=== PATIENT | male | born 1990 | race American Indian/Alaskan Native ===

== ENCOUNTER 2019-02-17 11:19 | Emergency (ER) | payer MEDICAID ==
[~2019-02-17] VITALS: Ht 172.7 cm; Wt 80.0 kg
[~2019-02-17 11:19] MED LIST: CHLO25CA10 PO; COL0.6T PO; FAMO-115 CORPAK; NO HOME MEDS; ONDA8TAB9 PO; PANT-47 PO; PANT20TA2 PO; SUCR1TAB PO; ZOF4T PO
[2019-02-17 12:27] LABS: BASOPHILS % (AUTO) 0.8 % (0-1); EOSINOPHILS % (AUTO) 0.7 % (0-6); HEMATOCRIT 45.4 % (42.0-52.0); HEMOGLOBIN 15.7 g/dl (14.0-17.9); LYMPHOCYTES # (AUTO) 1.2 X10'3 (1.1-4.8); LYMPHOCYTES % (AUTO) 25.6 % (21-51); MEAN CORPUSCULAR HEMOGLOBIN 31.2 PG (27.0-31.0); MEAN CORPUSCULAR HGB CONC 34.6 g/dL (33.0-36.5); MEAN PLATELET VOLUME 7.2 FL (7.4-10.4); MONOCYTES # (AUTO) 0.4 X10'3 (0-0.9); MONOCYTES % (AUTO) 9.3 % (2-12); NEUTROPHILS # (AUTO) 3.1 X10'3 (1.8-7.7); NEUTROPHILS % (AUTO) 63.6 % (42-75); PLATELET COUNT 186 X10'3 (140-440); RED BLOOD COUNT 5.04 X10'6 (4.70-6.10); RED CELL DISTRIBUTION WIDTH 12.6 % (11.5-14.5); WHITE BLOOD COUNT 4.8 X10'3 (4.5-11.0)
[2019-02-17 12:39] LABS: ALANINE AMINOTRANSFERASE 42 U/L (12-78); ALBUMIN 4.1 G/DL (3.4-5.0); ALBUMIN/GLOBULIN RATIO 1.3 (1.1-1.5); ALKALINE PHOSPHATASE 100 IU/L (46-116); ANION GAP 8 (8-16); ASPARTATE AMINO TRANSFERASE 25 U/L (10-37); BILIRUBIN,TOTAL 0.5 MG/DL (0.1-1.0); BLOOD UREA NITROGEN 12 MG/DL (7-18); BUN/CREATININE RATIO 13.5 (5.4-32.0); CALCIUM 8.7 MG/DL (8.5-10.1); CHLORIDE 107 MMOL/L (99-107); CREATININE 0.89 MG/DL (0.60-1.10); GLUCOSE 110 MG/DL (70-104); POTASSIUM 3.9 MMOL/L (3.5-5.1); SODIUM 142 MMOL/L (135-145); TOTAL CARBON DIOXIDE 27.5 MMOL/L (24-32); TOTAL PROTEIN 7.3 G/DL (6.4-8.2); eGFR > 90 ML/MIN
[2019-02-17 12:44] LABS: CLARITY,URINE CLEAR (Clear); COLOR,URINE YELLOW (Yellow); GLUCOSE, URINE NEGATIVE (Neg); KETONES,URINE NEGATIVE (Neg); LEUKOCYTE ESTERASE ,URINE NEGATIVE (Neg); NITRITES, URINE NEGATIVE (Neg); OCCULT BLOOD,URINE NEGATIVE (Neg); PROTEIN,URINE NEGATIVE (Neg)
[2019-02-17 12:48] LABS: UA COLLECTION TYPE CLN CATCH MIDSTREAM
[2019-02-17] MEDS ORDERED: SUCR1TAB34 PO (12:50)
[2019-02-17] MEDS ORDERED: PANT-47 PO (12:50)
[2019-02-17] MEDS ORDERED: sucralfate 1gm/10ml UD suspension PO ONE (12:50)
[2019-02-17] MEDS ORDERED: pantoprazole 40mg Tablet.DR PO ONE (12:50)
[2019-02-17 13:06] VITALS: BP 120/78
== END 2019-02-17 13:08 | disposition home or self-care (01) ==
LOC: ER 11:20
DX: K62.5 Hemorrhage of anus and rectum (principal); R10.13 Epigastric pain; K21.9 Gastro-esophageal reflux disease without esophagitis; F15.90 Other stimulant use, unspecified, uncomplicated; Z87.11 Personal history of peptic ulcer disease; Z79.899 Other long term (current) drug therapy
CPT/HCPCS: 36415; 80053; 81003; 85025; 85610; 99283

== ENCOUNTER 2019-09-12 11:58 | Emergency (ER) | payer MEDICAID ==
[~2019-09-12] VITALS: Ht 167.6 cm; Wt 65.0 kg
[~2019-09-12 11:58] MED LIST changes: +SUCR1TAB34 PO
[2019-09-12 12:14] VITALS: BP 134/85
[2019-09-12] MEDS ORDERED: ketorolac trometh. 30mg/ml inj. IM ONE (13:35)
== END 2019-09-12 14:37 | disposition home or self-care (01) ==
LOC: ER 11:59
DX: S83.92XA Sprain of unspecified site of left knee, initial encounter (principal); S70.12XA Contusion of left thigh, initial encounter; K21.9 Gastro-esophageal reflux disease without esophagitis; F15.90 Other stimulant use, unspecified, uncomplicated; Z79.899 Other long term (current) drug therapy; X50.1XXA Overexertion from prolonged static or awkward postures, initial encounter; W18.39XA Other fall on same level, initial encounter; Y93.89 Activity, other specified; Y92.89 Other specified places as the place of occurrence of the external cause; Y99.8 Other external cause status
CPT/HCPCS: 73502; 73552; 96372; 99284; J1885

== ENCOUNTER 2021-07-27 14:56 | Emergency (ER) | payer MEDICAID ==
[~2021-07-27] VITALS: Ht 170.2 cm; Wt 63.6 kg
[2021-07-27 15:09] VITALS: BP 117/69
[2021-07-27 16:01] LABS: BASOPHILS % (AUTO) 0.7 % (0-1); EOSINOPHILS % (AUTO) 0.7 % (0-6); HEMATOCRIT 46.7 % (42.0-52.0); HEMOGLOBIN 15.8 g/dl (14.0-17.9); LYMPHOCYTES # (AUTO) 1.4 X10'3 (1.1-4.8); LYMPHOCYTES % (AUTO) 27.3 % (21-51); MEAN CORPUSCULAR HEMOGLOBIN 30.3 PG (27.0-31.0); MEAN CORPUSCULAR HGB CONC 33.8 g/dL (33.0-36.5); MEAN CORPUSCULAR VOLUME 89.6 FL (78-98); MEAN PLATELET VOLUME 7.5 FL (7.4-10.4); MONOCYTES # (AUTO) 0.4 X10'3 (0-0.9); MONOCYTES % (AUTO) 8.1 % (2-12); NEUTROPHILS # (AUTO) 3.3 X10'3 (1.8-7.7); NEUTROPHILS % (AUTO) 63.2 % (42-75); PLATELET COUNT 187 X10'3 (140-440); RED BLOOD COUNT 5.21 X10'6 (4.70-6.10); RED CELL DISTRIBUTION WIDTH 12.4 % (11.5-14.5); WHITE BLOOD COUNT 5.2 X10'3 (4.5-11.0)
[2021-07-27 16:37] LABS: ALANINE AMINOTRANSFERASE 16 U/L (12-78); ALBUMIN 4.4 G/DL (3.4-5.0); ALBUMIN/GLOBULIN RATIO 1.6 (1.1-1.5); ALKALINE PHOSPHATASE 60 IU/L (46-116); ANION GAP 12 (8-16); ASPARTATE AMINO TRANSFERASE 14 U/L (10-37); BILIRUBIN,TOTAL 0.6 MG/DL (0.1-1.0); BLOOD UREA NITROGEN 9 MG/DL (7-18); CHLORIDE 105 MMOL/L (99-107); GLUCOSE 88 MG/DL (70-104); LIPASE < 50 U/L (73-393); MAGNESIUM 1.9 MG/DL (1.5-2.4); POTASSIUM 4.3 MMOL/L (3.5-5.1); SODIUM 143 MMOL/L (135-145); TOTAL CARBON DIOXIDE 26.2 MMOL/L (24-32); TOTAL PROTEIN 7.2 G/DL (6.4-8.2); eGFR > 90 ML/MIN
[2021-07-27] MEDS ORDERED: FAMO20TA8 PO (17:00)
[2021-07-27 17:28] LABS: CLARITY,URINE CLEAR (Clear); COLOR,URINE YELLOW (Yellow); GLUCOSE, URINE NEGATIVE (Neg); KETONES,URINE NEGATIVE (Neg); LEUKOCYTE ESTERASE ,URINE TRACE (Neg); NITRITES, URINE NEGATIVE (Neg); OCCULT BLOOD,URINE TRACE-INTACT (Neg); PROTEIN,URINE NEGATIVE (Neg); UROBILINOGEN,URINE 0.2 E.U/dL (0.2-1.0)
[2021-07-27 17:32] LABS: UA COLLECTION TYPE CLN CATCH MIDSTREAM
[2021-07-27 17:40] LABS: BACTERIA,URINE FEW /HPF (Neg); MUCUS STRANDS FEW /LPF (Neg); RBC,URINE 0-2 /HPF (0-2); SQUAMOUS EPITHELIAL CELL,UR FEW /LPF (FEW)
[2021-07-27 17:41] LABS: WBC,URINE 0-4 /HPF (0-4)
== END 2021-07-27 17:13 | disposition home or self-care (01) ==
LOC: ER 14:57
DX: R10.31 Right lower quadrant pain (principal); K92.1 Melena; R19.7 Diarrhea, unspecified; K21.9 Gastro-esophageal reflux disease without esophagitis; F15.90 Other stimulant use, unspecified, uncomplicated; Z87.11 Personal history of peptic ulcer disease; Z72.89 Other problems related to lifestyle; Z79.899 Other long term (current) drug therapy
CPT/HCPCS: 36415; 74176; 80053; 81001; 82140; 83690; 83735; 85025; 87088; 99284

== ENCOUNTER 2021-08-07 13:16 | Emergency (ER) | payer MEDICAID ==
[~2021-08-07] VITALS: Ht 167.6 cm; Wt 53.6 kg
[~2021-08-07 13:16] MED LIST changes: +FAMO20TA8 PO
[2021-08-07 13:25] VITALS: BP 113/72
[2021-08-07 14:02] LABS: CLARITY,URINE CLEAR (Clear); COLOR,URINE YELLOW (Yellow); GLUCOSE, URINE NEGATIVE (Neg); KETONES,URINE NEGATIVE (Neg); LEUKOCYTE ESTERASE ,URINE NEGATIVE (Neg); NITRITES, URINE NEGATIVE (Neg); OCCULT BLOOD,URINE NEGATIVE (Neg); PH,URINE 6.5 (4.8-8.0); PROTEIN,URINE NEGATIVE (Neg); UROBILINOGEN,URINE 0.2 E.U/dL (0.2-1.0)
[2021-08-07 14:04] LABS: UA COLLECTION TYPE VOIDED
[2021-08-07 14:12] LABS: BASOPHILS % (AUTO) 0.5 % (0-1); EOSINOPHILS # (AUTO) 0.1 X10'3 (0-0.9); EOSINOPHILS % (AUTO) 1.4 % (0-6); HEMATOCRIT 46.8 % (42.0-52.0); HEMOGLOBIN 16.1 g/dl (14.0-17.9); LYMPHOCYTES # (AUTO) 1.6 X10'3 (1.1-4.8); LYMPHOCYTES % (AUTO) 21.3 % (21-51); MEAN CORPUSCULAR HGB CONC 34.5 g/dL (33.0-36.5); MEAN PLATELET VOLUME 7.4 FL (7.4-10.4); MONOCYTES # (AUTO) 0.6 X10'3 (0-0.9); MONOCYTES % (AUTO) 7.4 % (2-12); NEUTROPHILS # (AUTO) 5.1 X10'3 (1.8-7.7); NEUTROPHILS % (AUTO) 69.4 % (42-75); PLATELET COUNT 190 X10'3 (140-440); RED CELL DISTRIBUTION WIDTH 12.7 % (11.5-14.5); WHITE BLOOD COUNT 7.4 X10'3 (4.5-11.0)
[2021-08-07 14:18] LABS: ALANINE AMINOTRANSFERASE 19 U/L (12-78); ALBUMIN 4.3 G/DL (3.4-5.0); ALBUMIN/GLOBULIN RATIO 1.6 (1.1-1.5); ALKALINE PHOSPHATASE 66 IU/L (46-116); ANION GAP 8 (8-16); ASPARTATE AMINO TRANSFERASE 16 U/L (10-37); BILIRUBIN,TOTAL 0.5 MG/DL (0.1-1.0); BLOOD UREA NITROGEN 9 MG/DL (7-18); BUN/CREATININE RATIO 10.7 (5.4-32.0); CHLORIDE 107 MMOL/L (99-107); CREATININE 0.84 MG/DL (0.60-1.10); GLUCOSE 87 MG/DL (70-104); LIPASE 63 U/L (73-393); POTASSIUM 4.2 MMOL/L (3.5-5.1); SODIUM 143 MMOL/L (135-145); TOTAL CARBON DIOXIDE 27.8 MMOL/L (24-32); eGFR > 90 ML/MIN
[2021-08-07] MEDS ORDERED: OMEP20CA15 PO (14:56)
[2021-08-07 16:29] LABS: OCCULT BLOOD STOOL POSITIVE (Neg)
== END 2021-08-07 15:24 | disposition home or self-care (01) ==
LOC: ER 13:17
DX: K92.2 Gastrointestinal hemorrhage, unspecified (principal); R10.32 Left lower quadrant pain; K21.9 Gastro-esophageal reflux disease without esophagitis; Z79.899 Other long term (current) drug therapy
CPT/HCPCS: 36415; 80053; 81003; 82272; 83690; 85025; 99283

== ENCOUNTER 2022-01-13 20:00 | Emergency (ER) | payer MEDICAID ==
[~2022-01-13] VITALS: Ht 167.6 cm; Wt 55.9 kg
[~2022-01-13 20:00] MED LIST changes: +OMEP20CA15 PO
[2022-01-13 20:52] LABS: CLARITY,URINE SLIGHTLY CLOUDY (Clear); COLOR,URINE YELLOW (Yellow); GLUCOSE, URINE NEGATIVE (Neg); KETONES,URINE TRACE mg/dl (Neg); LEUKOCYTE ESTERASE ,URINE NEGATIVE (Neg); NITRITES, URINE NEGATIVE (Neg); OCCULT BLOOD,URINE NEGATIVE (Neg); PH,URINE 8.5 (4.8-8.0); PROTEIN,URINE TRACE mg/dl (Neg); UROBILINOGEN,URINE 0.2 E.U/dL (0.2-1.0)
[2022-01-13 20:56] LABS: UA COLLECTION TYPE VOIDED
[2022-01-13 20:58] LABS: BASOPHILS % (AUTO) 0.5 % (0-1); EOSINOPHILS # (AUTO) 0.1 X10'3 (0-0.9); EOSINOPHILS % (AUTO) 1.1 % (0-6); HEMATOCRIT 41.5 % (42.0-52.0); HEMOGLOBIN 14.2 g/dl (14.0-17.9); LYMPHOCYTES # (AUTO) 1.7 X10'3 (1.1-4.8); LYMPHOCYTES % (AUTO) 24.9 % (21-51); MEAN CORPUSCULAR HEMOGLOBIN 30.9 PG (27.0-31.0); MEAN CORPUSCULAR HGB CONC 34.1 g/dL (33.0-36.5); MEAN CORPUSCULAR VOLUME 90.6 FL (78-98); MONOCYTES # (AUTO) 0.5 X10'3 (0-0.9); MONOCYTES % (AUTO) 7.1 % (2-12); NEUTROPHILS # (AUTO) 4.6 X10'3 (1.8-7.7); NEUTROPHILS % (AUTO) 66.4 % (42-75); PLATELET COUNT 199 X10'3 (140-440); RED BLOOD COUNT 4.58 X10'6 (4.70-6.10); RED CELL DISTRIBUTION WIDTH 12.7 % (11.5-14.5); WHITE BLOOD COUNT 6.9 X10'3 (4.5-11.0)
[2022-01-13 21:01] LABS: BACTERIA,URINE NONE SEEN /HPF (Neg); RBC,URINE NONE SEEN /HPF (0-2); SQUAMOUS EPITHELIAL CELL,UR FEW /LPF (FEW); WBC,URINE NONE SEEN /HPF (0-4)
[2022-01-13 21:12] LABS: ALANINE AMINOTRANSFERASE 28 U/L (12-78); ALBUMIN 4.1 G/DL (3.4-5.0); ALBUMIN/GLOBULIN RATIO 1.5 (1.1-1.5); ALKALINE PHOSPHATASE 70 IU/L (46-116); ANION GAP 7 (8-16); ASPARTATE AMINO TRANSFERASE 21 U/L (10-37); BILIRUBIN,TOTAL 0.4 MG/DL (0.1-1.0); BLOOD UREA NITROGEN 11 MG/DL (7-18); CALCIUM 8.2 MG/DL (8.5-10.1); CHLORIDE 104 MMOL/L (99-107); CREATININE 1.22 MG/DL (0.60-1.10); GLUCOSE 91 MG/DL (70-104); LIPASE 78 U/L (73-393); POTASSIUM 4.1 MMOL/L (3.5-5.1); SODIUM 142 MMOL/L (135-145); TOTAL CARBON DIOXIDE 30.8 MMOL/L (24-32); TOTAL PROTEIN 6.9 G/DL (6.4-8.2); eGFR 69 ML/MIN
[2022-01-13] MEDS ORDERED: iohexol 350MG/ML 100ml bottle IV ONE (21:52)
[2022-01-13] MEDS ORDERED: ketorolac trometh. 30mg/ml inj. IV ONE (22:00)
[2022-01-13] MEDS ORDERED: ondansetron/PF 4mg/2ml inj IV ONE (22:00)
[2022-01-13] MEDS ORDERED: morphine 4 MG/ML inj SYRINge IV PRN (22:00)
[2022-01-13] MEDS ORDERED: normal saline 1000ML IV soln IVB ONE (22:00)
--- NOTE | 2022-01-13 22:14 | NUR ---
TO CT VIA WC
[2022-01-13] MEDS ORDERED: HYDR-3965 PO (22:54)
[2022-01-13] MEDS ORDERED: HYDROcodone/acetaminophen 10/325mg tab PO ONE (22:55)
[2022-01-13 23:31] VITALS: BP 129/89
== END 2022-01-13 23:32 | disposition home or self-care (01) ==
LOC: ER 20:00
DX: T81.89XA Other complications of procedures, not elsewhere classified, initial encounter (principal); F15.10 Other stimulant abuse, uncomplicated; K21.9 Gastro-esophageal reflux disease without esophagitis; Z79.899 Other long term (current) drug therapy
CPT/HCPCS: 36415; 74177; 80053; 81001; 83690; 85025; 96361; 96374; 96375; 99285; J1885; J2270; J2405; J3490; J7030; Q9967

== ENCOUNTER 2022-04-13 15:04 | Emergency (ER) | payer MEDICAID ==
[~2022-04-13] VITALS: Ht 162.6 cm; Wt 153.9 kg
[2022-04-13 15:17] VITALS: BP 132/75
[2022-04-13 16:38] LABS: BASOPHILS # (AUTO) 0.1 X10'3 (0-0.2); BASOPHILS % (AUTO) 0.8 % (0-1); EOSINOPHILS # (AUTO) 0.2 X10'3 (0-0.9); EOSINOPHILS % (AUTO) 2.1 % (0-6); HEMATOCRIT 45.3 % (42.0-52.0); HEMOGLOBIN 15.5 g/dl (14.0-17.9); LYMPHOCYTES # (AUTO) 2.3 X10'3 (1.1-4.8); LYMPHOCYTES % (AUTO) 28.6 % (21-51); MEAN CORPUSCULAR HEMOGLOBIN 31.4 PG (27.0-31.0); MEAN CORPUSCULAR HGB CONC 34.2 g/dL (33.0-36.5); MEAN CORPUSCULAR VOLUME 91.7 FL (78-98); MEAN PLATELET VOLUME 7.5 FL (7.4-10.4); MONOCYTES # (AUTO) 0.7 X10'3 (0-0.9); NEUTROPHILS # (AUTO) 4.8 X10'3 (1.8-7.7); NEUTROPHILS % (AUTO) 59.5 % (42-75); PLATELET COUNT 194 X10'3 (140-440); RED BLOOD COUNT 4.94 X10'6 (4.70-6.10); RED CELL DISTRIBUTION WIDTH 12.4 % (11.5-14.5)
[2022-04-13 16:56] LABS: ALANINE AMINOTRANSFERASE 12 U/L (12-78); ALBUMIN 3.9 G/DL (3.4-5.0); ALBUMIN/GLOBULIN RATIO 1.4 (1.1-1.5); ALKALINE PHOSPHATASE 67 IU/L (46-116); ANION GAP 7 (8-16); ASPARTATE AMINO TRANSFERASE 22 U/L (10-37); BILIRUBIN,TOTAL 0.3 MG/DL (0.1-1.0); BLOOD UREA NITROGEN 11 MG/DL (7-18); BUN/CREATININE RATIO 13.3 (5.4-32.0); CALCIUM 8.6 MG/DL (8.5-10.1); CHLORIDE 106 MMOL/L (99-107); CREATININE 0.83 MG/DL (0.60-1.10); GLUCOSE 92 MG/DL (70-104); LIPASE 77 U/L (73-393); POTASSIUM 3.6 MMOL/L (3.5-5.1); SODIUM 140 MMOL/L (135-145); TOTAL CARBON DIOXIDE 27.5 MMOL/L (24-32); TOTAL PROTEIN 6.7 G/DL (6.4-8.2); eGFR > 90 ML/MIN
== END 2022-04-13 18:53 | disposition home or self-care (01) ==
LOC: ER 15:04
DX: M62.08 Separation of muscle (nontraumatic), other site (principal); R10.12 Left upper quadrant pain; K21.9 Gastro-esophageal reflux disease without esophagitis; F15.90 Other stimulant use, unspecified, uncomplicated; Z87.11 Personal history of peptic ulcer disease; Z72.89 Other problems related to lifestyle; Z79.899 Other long term (current) drug therapy
CPT/HCPCS: 36415; 76700; 80053; 83690; 85025; 99284

== ENCOUNTER 2022-08-04 09:29 | Emergency (ER) | payer MEDICAID ==
[~2022-08-04] VITALS: Ht 160 cm; Wt 55.0 kg
[2022-08-04 09:31] VITALS: BP 112/75
[2022-08-04] MEDS ORDERED: HYDROcodone/acetaminophen 10/325mg tab PO ONE (10:35)
[2022-08-04] MEDS ORDERED: TRAM50TA2 PO (10:58)
== END 2022-08-04 11:46 | disposition home or self-care (01) ==
LOC: ER 09:29
DX: M25.531 Pain in right wrist (principal); V00.131A Fall from skateboard, initial encounter; Y93.89 Activity, other specified; Y92.89 Other specified places as the place of occurrence of the external cause; Y99.8 Other external cause status
CPT/HCPCS: 29125; 73110; 99284

== ENCOUNTER 2022-10-24 11:54 | Emergency (ER) | payer MEDICAID ==
[~2022-10-24] VITALS: Ht 160 cm; Wt 53.2 kg
[~2022-10-24 11:54] MED LIST changes: +TRAM50TA2 PO
[2022-10-24] MEDS ORDERED: oxyCODONE/APAP 10/325mg tablet PO ONE (14:15)
[2022-10-24 14:49] VITALS: BP 139/74
[2022-10-24] MEDS ORDERED: METH4TAB3 PO (18:45)
== END 2022-10-24 14:51 | disposition home or self-care (01) ==
LOC: ER 11:55
DX: M25.531 Pain in right wrist (principal); K21.9 Gastro-esophageal reflux disease without esophagitis; F15.20 Other stimulant dependence, uncomplicated; V00.131A Fall from skateboard, initial encounter; Y93.89 Activity, other specified; Y92.89 Other specified places as the place of occurrence of the external cause; Y99.8 Other external cause status
CPT/HCPCS: 99283

== ENCOUNTER 2023-01-19 16:42 | Emergency (ER) | payer MEDICAID ==
[~2023-01-19] VITALS: Ht 167.6 cm; Wt 80.0 kg
[~2023-01-19 16:42] MED LIST changes: +CYCL-1 PO; +METH4TAB3 PO
[2023-01-19 19:22] LABS: BASOPHILS % (AUTO) 0.6 % (0-1); EOSINOPHILS # (AUTO) 0.2 X10'3 (0-0.9); EOSINOPHILS % (AUTO) 3.5 % (0-6); HEMATOCRIT 46.4 % (42.0-52.0); HEMOGLOBIN 15.8 g/dl (14.0-17.9); LYMPHOCYTES # (AUTO) 1.7 X10'3 (1.1-4.8); LYMPHOCYTES % (AUTO) 30.4 % (21-51); MEAN CORPUSCULAR HEMOGLOBIN 31.7 PG (27.0-31.0); MEAN CORPUSCULAR HGB CONC 34.1 g/dL (33.0-36.5); MEAN CORPUSCULAR VOLUME 92.9 FL (78-98); MEAN PLATELET VOLUME 7.5 FL (7.4-10.4); MONOCYTES # (AUTO) 0.6 X10'3 (0-0.9); NEUTROPHILS % (AUTO) 54.5 % (42-75); PLATELET COUNT 179 X10'3 (140-440); RED BLOOD COUNT 4.99 X10'6 (4.70-6.10); RED CELL DISTRIBUTION WIDTH 12.3 % (11.5-14.5); WHITE BLOOD COUNT 5.5 X10'3 (4.5-11.0)
[2023-01-19 19:31] LABS: ALANINE AMINOTRANSFERASE 28 U/L (12-78); ALBUMIN/GLOBULIN RATIO 1.4 (1.1-1.5); ALKALINE PHOSPHATASE 86 IU/L (46-116); AMYLASE 61 U/L (25-115); ANION GAP 8 (8-16); ASPARTATE AMINO TRANSFERASE 26 U/L (10-37); BILIRUBIN,TOTAL 0.4 MG/DL (0.1-1.0); BLOOD UREA NITROGEN 14 MG/DL (7-18); BUN/CREATININE RATIO 13.6 (10.0-20.0); CHLORIDE 101 MMOL/L (99-107); CREATININE 1.03 MG/DL (0.60-1.10); GLUCOSE 67 MG/DL (70-104); LIPASE 57 U/L (73-393); POTASSIUM 3.8 MMOL/L (3.5-5.1); SODIUM 141 MMOL/L (135-145); TOTAL PROTEIN 6.9 G/DL (6.4-8.2); eCRCL 92 ML/MIN; eGFR 83 ML/MIN
[2023-01-19 19:39] LABS: CALCIUM 8.8 MG/DL (8.5-10.1)
[2023-01-19 22:46] VITALS: BP 119/76; PULSE 67; RESP 16; TEMP 98.3; O2SAT 100
[2023-01-19] MEDS ORDERED: iohexol 300mg/ml 100ml inj. ONE (23:47)
[2023-01-20 02:26] LABS: BILIRUBIN,URINE NEGATIVE (Neg); CLARITY,URINE CLEAR (Clear); COLOR,URINE STRAW (Yellow); GLUCOSE, URINE NEGATIVE (Neg); KETONES,URINE NEGATIVE (Neg); LEUKOCYTE ESTERASE ,URINE NEGATIVE (Neg); NITRITES, URINE NEGATIVE (Neg); OCCULT BLOOD,URINE NEGATIVE (Neg); PROTEIN,URINE NEGATIVE (Neg); UROBILINOGEN,URINE 0.2 E.U/dL (0.2-1.0)
[2023-01-20 02:28] LABS: UA COLLECTION TYPE VOIDED
[2023-01-20] MEDS ORDERED: PANT-47 PO (02:45)
[2023-01-20] MEDS ORDERED: METO-292 PO (02:45)
[2023-01-20] MEDS ORDERED: pantoprazole 40mg Tablet.DR PO ONE (02:45)
[2023-01-20] MEDS ORDERED: DIPH25CA83 PO (02:45)
[2023-01-20] MEDS ORDERED: diphenhydrAMINE 25mg capsule PO ONE (02:45)
[2023-01-20] MEDS ORDERED: metoclopramide 10mg tablet PO ONE (02:45)
[2023-01-20] MEDS ORDERED: pantoprazole 40mg Tablet.DR PO SCH (07:30)
== END 2023-01-20 03:00 | disposition home or self-care (01) ==
LOC: ER 16:42
DX: K29.60 Other gastritis without bleeding (principal); R10.9 Unspecified abdominal pain; K21.9 Gastro-esophageal reflux disease without esophagitis; F15.90 Other stimulant use, unspecified, uncomplicated; Z79.899 Other long term (current) drug therapy
CPT/HCPCS: 36415; 74177; 80053; 81003; 82150; 83690; 85025; 99285; Q0163; Q9967

== ENCOUNTER 2023-05-04 18:00 | Emergency (ER) | payer MEDICAID ==
[~2023-05-04] VITALS: Ht 162.6 cm; Wt 61.7 kg
[~2023-05-04 18:00] MED LIST changes: +DIPH25CA83 PO; +METO-292 PO
[2023-05-04 18:05] VITALS: BP 131/74; PULSE 64; RESP 18; TEMP 97.7; O2SAT 99
[2023-05-04] MEDS ORDERED: LIPA1CAP21 PO (18:58)
== END 2023-05-04 19:16 | disposition home or self-care (01) ==
LOC: ER 18:00
DX: K85.90 Acute pancreatitis without necrosis or infection, unspecified (principal); Z76.0 Encounter for issue of repeat prescription; K21.9 Gastro-esophageal reflux disease without esophagitis; F15.90 Other stimulant use, unspecified, uncomplicated; Z72.89 Other problems related to lifestyle; Z79.899 Other long term (current) drug therapy
CPT/HCPCS: 99281

== ENCOUNTER 2023-08-05 09:25 | Emergency (ER) | payer MEDICAID ==
[~2023-08-05] VITALS: Ht 165.1 cm; Wt 57.5 kg
[~2023-08-05 09:25] MED LIST changes: +LIPA1CAP21 PO
[2023-08-05 10:03] VITALS: BP 125/73; PULSE 73; RESP 14; TEMP 98; O2SAT 100
[2023-08-05 11:15] LABS: BILIRUBIN,URINE NEGATIVE (Neg); CLARITY,URINE CLEAR (Clear); COLOR,URINE YELLOW (Yellow); GLUCOSE, URINE NEGATIVE (Neg); KETONES,URINE NEGATIVE (Neg); LEUKOCYTE ESTERASE ,URINE NEGATIVE (Neg); NITRITES, URINE NEGATIVE (Neg); OCCULT BLOOD,URINE NEGATIVE (Neg); PH,URINE 7.5 (4.8-8.0); PROTEIN,URINE NEGATIVE (Neg); UROBILINOGEN,URINE 0.2 E.U/dL (0.2-1.0)
[2023-08-05 11:17] LABS: UA COLLECTION TYPE CLN CATCH MIDSTREAM
== END 2023-08-05 11:15 | disposition left against medical advice (07) ==
LOC: ER 09:25
DX: G40.909 Epilepsy, unspecified, not intractable, without status epilepticus (principal); Z53.21 Procedure and treatment not carried out due to patient leaving prior to being seen by health care provider
CPT/HCPCS: 81003; 99281

== ENCOUNTER 2024-06-14 14:42 | Emergency (ER) | payer MEDICAID | END 2024-06-14 16:23 | disposition left against medical advice (07) | LOC: ER 14:43 | DX: R10.9 Unspecified abdominal pain (principal); Z53.21 Procedure and treatment not carried out due to patient leaving prior to being seen by health care provider ==

== ENCOUNTER 2024-06-16 10:51 | Emergency (ER) | payer MEDICAID ==
[~2024-06-16] VITALS: Ht 167.6 cm; Wt 50.5 kg
[2024-06-16 11:06] VITALS: BP 126/80; PULSE 73; RESP 18; TEMP 97.6; O2SAT 98
[2024-06-16 12:28] LABS: BILIRUBIN,URINE NEGATIVE (Neg); CLARITY,URINE CLOUDY (Clear); COLOR,URINE YELLOW (Yellow); GLUCOSE, URINE NEGATIVE (Neg); KETONES,URINE NEGATIVE (Neg); LEUKOCYTE ESTERASE ,URINE NEGATIVE (Neg); NITRITES, URINE NEGATIVE (Neg); OCCULT BLOOD,URINE NEGATIVE (Neg); PH,URINE 8.5 (4.8-8.0); PROTEIN,URINE NEGATIVE (Neg); UROBILINOGEN,URINE 0.2 E.U/dL (0.2-1.0)
[2024-06-16 12:32] LABS: UA COLLECTION TYPE NON-SPECIFIED
[2024-06-16 12:34] LABS: BASOPHILS % (AUTO) 0.5 % (0-1); EOSINOPHILS % (AUTO) 0.4 % (0-6); HEMATOCRIT 44.8 % (42.0-52.0); HEMOGLOBIN 15.6 g/dl (14.0-17.9); LYMPHOCYTES # (AUTO) 1.2 X10'3 (1.1-4.8); LYMPHOCYTES % (AUTO) 17.5 % (21-51); MEAN CORPUSCULAR HEMOGLOBIN 32.4 PG (27.0-31.0); MEAN CORPUSCULAR HGB CONC 34.7 g/dL (33.0-36.5); MEAN CORPUSCULAR VOLUME 93.3 FL (78-98); MEAN PLATELET VOLUME 7.7 FL (7.4-10.4); MONOCYTES # (AUTO) 0.6 X10'3 (0-0.9); MONOCYTES % (AUTO) 9.5 % (2-12); NEUTROPHILS # (AUTO) 4.9 X10'3 (1.8-7.7); NEUTROPHILS % (AUTO) 72.1 % (42-75); PLATELET COUNT 202 X10'3 (140-440); RED CELL DISTRIBUTION WIDTH 12.4 % (11.5-14.5); WHITE BLOOD COUNT 6.8 X10'3 (4.5-11.0)
[2024-06-16 12:35] LABS: AMORPHOUS PHOSPHATES 3+; BACTERIA,URINE NONE SEEN /HPF (Neg); MUCUS STRANDS NONE SEEN /LPF (Neg); RBC,URINE NONE SEEN /HPF (0-2); SQUAMOUS EPITHELIAL CELL,UR NONE SEEN /LPF (FEW); WBC,URINE 0-4 /HPF (0-4)
[2024-06-16] MEDS: OLANZapine 2.5MG tablet PO STA (12:39)
[2024-06-16 13:09] LABS: URINE AMPHETAMINE SCREEN NEGATIVE (Neg); URINE BARBITUATE SCREEN NEGATIVE (Neg); URINE BENZODIAZEPINES SCREEN NEGATIVE (Neg); URINE CANNABINOID SCREEN POSITIVE (Neg); URINE COCAINE SCREEN NEGATIVE (Neg); URINE METHADONE SCREEN NEGATIVE (Neg); URINE OPIATE SCREEN NEGATIVE (Neg); URINE PHENCYCLIDINE SCREEN NEGATIVE (Neg)
[2024-06-16 14:25] LABS: ALBUMIN 4.1 G/DL (3.4-5.0); ANION GAP 9 (8-16); BLOOD UREA NITROGEN 11 MG/DL (7-18); BUN/CREATININE RATIO 16.7 (10.0-20.0); CALCIUM 8.8 MG/DL (8.5-10.1); CHLORIDE 101 MMOL/L (99-107); CREATININE 0.66 MG/DL (0.60-1.10); ETHANOL < 10 MG/DL (<10); GLUCOSE 102 MG/DL (70-104); POTASSIUM 3.7 MMOL/L (3.5-5.1); SODIUM 139 MMOL/L (135-145); eCRCL 112 ML/MIN; eGFR > 90 ML/MIN
[2024-06-16 14:37] LABS: THYROID STIMULATING HORMONE 1.11 ulU/ml (0.34-4.50)
[2024-06-16] MEDS: LIPASE/PROTEASE/AMYLASE 10,500 units CAPSULE.DR PO ONE (18:25)
[2024-06-16] MEDS: LORazepam 1 MG tablet PO STA (19:42)
[2024-06-17] MEDS ORDERED: LIPASE/PROTEASE/AMYLASE 10,500 units CAPSULE.DR PO SCH (07:30)
== END 2024-06-16 20:01 | disposition still patient (30) ==
LOC: ER 10:52
DX: R45.851 Suicidal ideations (principal); F25.9 Schizoaffective disorder, unspecified; K21.9 Gastro-esophageal reflux disease without esophagitis; F15.90 Other stimulant use, unspecified, uncomplicated; Z20.822 Contact with and (suspected) exposure to COVID-19; Z79.899 Other long term (current) drug therapy
CPT/HCPCS: 36415; 80048; 80305; 80320; 81001; 84443; 85025; 87811; 99285

== ENCOUNTER 2024-10-11 11:45 | Emergency (ER) | payer MEDICAID ==
[~2024-10-11] VITALS: Ht 165.1 cm; Wt 63.0 kg
[2024-10-11 11:54] VITALS: BP 130/79; PULSE 97; RESP 16; TEMP 98.3; O2SAT 98
[2024-10-11] MEDS ORDERED: LIPA1CAP21 PO (13:28)
--- NOTE | 2024-10-11 13:29 | Physician Documentation ---
HPI ~ General Chief Complaint: Medication Refill Stated Complaint: MED REQUEST Time Seen by MD: 12:05 Primary Medical Doctor: CESAR TEMPLE Source: patient Mode of Arrival: POV Exam Limitations: no limitations History of Present Illness HPI Comments 34-year-old male with pancreatic insufficiency here due to needing a refill of his ZenPep. He last took his then pep yesterday stating that he ran out of it because it is due to be refilled but the pharmacy shipment did not come in. He denies any symptoms or concerns other than needing a prescription for this medication which he has been on for years. Medication Reconciliation Allergies: Coded Allergies: No Known Allergies (Unverified , 10/11/24) Scheduled Chlordiazepoxide Hcl (Librium), 25 MG PO DIRECTED Chlordiazepoxide Hcl (Librium), 25 MG PO DIRECTED Colchicine (Colcrys), 0.6 MG PO BID Cyclobenzaprine* (Cyclobenzaprine*), 1 TAB PO HS Famotidine (PEPCID tablet), 20 MG CORPAK BID Famotidine (Famotidine), 1 TABLET PO BID Lipase/Protease/Amylase (Zenpep Dr 40,000 Units Capsule), 6 CAPSULE PO Q4H Lipase/Protease/Amylase (Zenpep Dr 40,000 Units Capsule), 1 CAP PO 6xper day Methylprednisolone (Medrol), 1 DOSPAK PO UD Omeprazole (Omeprazole), 2 CAP PO BID Ondansetron ODT* (Zofran ODT*), 4 MG PO Q6H Pantoprazole Sodium (PROTONIX tablet), 1 TABLET PO DAILY Pantoprazole Sodium (PROTONIX tablet), 1 TAB PO DAILY Pantoprazole Sodium (PROTONIX tablet), 1 TAB PO DAILY Sucralfate (Carafate), 1 TAB PO Q6H Tramadol HCl (Tramadol HCl), 1-2 TABLET PO BID Scheduled PRN Diphenhydramine Hcl (Benadryl), 1 CAP PO Q6H PRN for abdominal cramps Metoclopramide HCl (Reglan), 1 TAB PO Q6H PRN for abdominal cramps Ondansetron (Zofran Odt), 8 MG PO TID PRN PRN for nausea/vomiting Pantoprazole Sodium (Protonix), 1 TABLET PO BID PRN for abdominal pain Sucralfate (Sucralfate), 1 TABLET PO QID PRN for abdiminal pain Miscellaneous Medications Home Med List (No Home Medications), (Reported) Past Medical History Past Medical History: GERD, Peptic Ulcer Disease Past Surgical History: no surgical history Alcohol Use: Sober Drug Use: methamphetamine Lives with: Family Lives In: Home Occupation: employed Review of Systems All Other Systems at this time: Reviewed and Negative Physical Exam Physical Exam Vital Signs: Temperature: 98.3, Source: Temporal, Heart Rate: 97, Respiratory Rate: 16, BP: 130/79, Pulse Oximetry: 98, Weight: 63.000 Oxygen Flow Rate: 0 Physical Exam General Appearance: Alert, WD/WN. NAD. HEENT: NCAT, PERRL, EOMI. Neck: Supple, trachea midline. Cardiovascular: RRR. No m/r/g. Lungs: CTAB. Breathing unlabored Extremities: Normal inspection. No edema. Skin: Warm/dry, normal color Neurological: Alert and oriented x4, normal gait. Psychiatric: Affect congruent with mood. Progress Results/Orders Results/Orders Vital Signs 10/11/24 11:54 Temp 98.3 Pulse 97 Resp 16 B/P (MAP) 130/79 Pulse Ox 98 O2 Flow Rate 0 Medical Decision Making Differential Dx:Considerations: Include: Adverse circumstances, Economic, Psychosocial, Medical services unavail., Medication refill, Medication non- compliance, Other Departure Time of Disposition: 13:47 Disposition: 01 HOME / SELF CARE / HOMELESS Impression: Primary Impression: Pancreatic insufficiency Additional Impression: Medication refill Condition: Stable Discharge Instructions: Medical Screening Exam Referrals: NO PRIMARY CARE PROVIDER (PCP) Prescriptions Lipase/Protease/Amylase ([place] 40,000 Units Capsule) [id number] Capsule. 1 CAP PO 6xper day, #60 Prov: CLAUDIA HATCH 10/11/24 Education Educated: Patient Educated regarding: diagnosis, treatment, need for follow up Signature Scribe Signature: sadi Attestation: CLAUDIA Escamilla Oct 11, 2024 13:28
== END 2024-10-11 13:47 | disposition home or self-care (01) ==
LOC: ER 11:45
DX: K86.89 Other specified diseases of pancreas (principal); Z76.0 Encounter for issue of repeat prescription; K21.9 Gastro-esophageal reflux disease without esophagitis; F15.90 Other stimulant use, unspecified, uncomplicated; Z79.899 Other long term (current) drug therapy
CPT/HCPCS: 99281

== ENCOUNTER 2024-10-30 11:45 | Emergency (ER) | payer MEDICAID ==
[~2024-10-30] VITALS: Ht 165.1 cm; Wt 61.8 kg
[2024-10-30 11:49] VITALS: TEMP 98
--- NOTE | 2024-10-30 12:05 | Physician Documentation ---
History of Present Illness Chief Complaint: Abdominal Pain w/vomiting Stated Complaint: BLOODY DIARRHEA Time Seen by MD: 12:02 OK to notify your PCP?: Yes Primary Medical Doctor: CESAR TEMPLE Mode of Arrival: POV HPI 34-year-old male patient with a history of gastroesophageal reflux disease, peptic ulcer disease and meth usage 34-year-old male patient with a history of exocrine pancreatic insufficiency hereditary, gastroesophageal reflux disease, schizoaffective disorder, methamphetamine usage in the past came to the emergency room because of upper left-sided abdominal pain for three days. He has been having nausea vomiting and also having blood in the stool. The patient denies smoking, alcohol drinking and also current no use of drugs. He does not endorse any other symptoms. Medication Reconciliation Allergies: Coded Allergies: No Known Allergies (Unverified , 10/11/24) Scheduled Chlordiazepoxide Hcl (Librium), 25 MG PO DIRECTED Chlordiazepoxide Hcl (Librium), 25 MG PO DIRECTED Colchicine (Colcrys), 0.6 MG PO BID Cyclobenzaprine* (Cyclobenzaprine*), 1 TAB PO HS Famotidine (PEPCID tablet), 20 MG CORPAK BID Famotidine (Famotidine), 1 TABLET PO BID Lipase/Protease/Amylase (Zenpep Dr 40,000 Units Capsule), 6 CAPSULE PO Q4H Lipase/Protease/Amylase (Zenpep Dr 40,000 Units Capsule), 1 CAP PO 6xper day Methylprednisolone (Medrol), 1 DOSPAK PO UD Omeprazole (Omeprazole), 2 CAP PO BID Ondansetron ODT* (Zofran ODT*), 4 MG PO Q6H Pantoprazole Sodium (PROTONIX tablet), 1 TABLET PO DAILY Pantoprazole Sodium (PROTONIX tablet), 1 TAB PO DAILY Pantoprazole Sodium (PROTONIX tablet), 1 TAB PO DAILY Rabeprazole Sodium (Rabeprazole Sodium), 1 TAB PO DAILY Sucralfate (Carafate), 1 TAB PO Q6H Tramadol HCl (Tramadol HCl), 1-2 TABLET PO BID Scheduled PRN Diphenhydramine Hcl (Benadryl), 1 CAP PO Q6H PRN for abdominal cramps Metoclopramide HCl (Reglan), 1 TAB PO Q6H PRN for abdominal cramps Ondansetron (Zofran Odt), 8 MG PO TID PRN PRN for nausea/vomiting Pantoprazole Sodium (Protonix), 1 TABLET PO BID PRN for abdominal pain Sucralfate (Sucralfate), 1 TABLET PO QID PRN for abdiminal pain Miscellaneous Medications Home Med List (No Home Medications), (Reported) Past Medical History Past Medical History: GERD, Peptic Ulcer Disease Past Surgical History: no surgical history Alcohol Use: Sober Drug Use: methamphetamine Lives with: Family Lives In: Home Occupation: employed Review of Systems ROS As stated above in the HPI, otherwise all systems are reviewed and negative. Physical Exam Vital Signs: Temperature: 98.0, Source: Oral, Heart Rate: 106, Respiratory Rate: 16, BP: 123/74, Pulse Oximetry: 97, Weight: 61.820 Oxygen Flow Rate: 0 Physical Exam Vital signs reviewed and they are well within normal range except slightly elevated heart rate of 100. Const: Adult male not in acute cardiopulmonary distress Head: Atraumatic Eyes: Normal Conjunctiva ENT: Normal External Ears, Nose and Mouth. Moist mucous membrane Neck: Full range of motion. No meningismus Resp: Clear to auscultation bilaterally. Normal work of breathing Cardio: Regular rate and rhythm, no murmurs. Skin well perfused, heart rate 96/minute Abd: Soft, tenderness in the left upper quadrant and epigastric area, non- distended. Normal bowel sounds. No rebound or guarding Rectal examination does not reveal any melanotic stool or fresh blood and occult blood is negative. Skin: No petechiae or rashes. Warm and dry Back: No midline or flank tenderness Ext: No cyanosis, or edema Neuro: Awake and alert Psych: Normal Mood and Affect Progress Results/Orders Results/Orders Orders - ANGY GUO MD Urinalysis, Cult If Indicated (10/30/24 11:55) Cbc/Diff (10/30/24 11:55) BMP (10/30/24 11:55) Lipase (10/30/24 11:55) CMP (10/30/24 11:55) Vital Signs 10/30/24 11:49 Temp 98.0 Pulse 106 Resp 16 B/P (MAP) 123/74 Pulse Ox 97 O2 Flow Rate 0 Medical Decision Making Findings During the physical examination, the findings suggestive of acute life-thre atening condition such as JVD, tracheal deviation, acidotic breathing, noisy stridorous breath sounds, pulses paradoxus, muffled heart sounds, unequal breath sounds, abdominal rigidity and rebound tenderness, focal neurological deficits, cool clammy skin, severe hypotension, severe tachycardia or bradycardia are absent. Physical examination does not reveal any acute abdominal signs . CBC showed WBC 5.7 and H and H15.9 and 45.9 and platelets 169. CMP and lipase are well within normal range. CT of the abdomen and pelvis with contrast intravenous is reported by the radiologist as no acute process detected. His repeat H&H is stable and he is discharged from the emergency room. (a bit of hemodilution from IV hydration.) DISCLAIMER Inadvertent spelling and grammatical errors,inadvertent rehabilitation case coordinator errors,syntax errors, grammatical errors, and spelling errors are likely due to EMR/dictation software use and do not reflect on the overall quality of patient care. Note that the electronic time recorded on this note does not necessarily reflect the actual time of the patient encounter. Departure Disposition: 01 HOME / SELF CARE / HOMELESS Impression: Primary Impression: Abdominal pain Additional Impression: Acute gastritis Condition: Stable Discharge Instructions: Gastritis, Adult, Abdominal Pain (Nonspecific) Additional Instructions: Thank you for coming to our Emergency Department today. Please continue taking medication as instructed. Please do follow up with your primary care provider in 3 to 5 days. Please ask your nurse or provider if you have questions about your care today and do not leave until all your questions have been answered. Please use any medications given as directed and follow-up with your doctor (or the doctor you were referred to) in the next 1-3 days. Your primary care doctor can help to coordinate outpatient specialty care (tempering machine operator) and provide authorization for specialty referral as needed. If you do not have a primary care doctor you may follow up at a [facility]. You may also use motrin and tylenol as needed for fever and/or pain unless instructed otherwise by your provider or nurse. Indications for more urgent follow-up have been discussed, but you may return to the Emergency Department at ANY time for any worrisome or worsening symptoms. Referrals: NO PRIMARY CARE PROVIDER (PCP) Prescriptions Rabeprazole Sodium (Rabeprazole Sodium) 20 Mg Tablet.dr 1 TAB PO DAILY for 30 Days, #30 TAB 0 Refills Prov: OHN,ANGY M MD 10/30/24 Signature Scribe Signature: None Attestation: My dictation ANGY GUO MD Oct 30, 2024 12:05
[2024-10-30 12:17] VITALS: RESP 16; O2SAT 97
[2024-10-30 12:20] LABS: BASOPHILS % (AUTO) 0.3 % (0-1); EOSINOPHILS % (AUTO) 0.8 % (0-6); HEMATOCRIT 45.9 % (42.0-52.0); HEMOGLOBIN 15.9 g/dl (14.0-17.9); LYMPHOCYTES % (AUTO) 17.1 % (21-51); MEAN CORPUSCULAR HEMOGLOBIN 30.9 PG (27.0-31.0); MEAN CORPUSCULAR HGB CONC 34.7 g/dL (33.0-36.5); MEAN PLATELET VOLUME 7.5 FL (7.4-10.4); MONOCYTES # (AUTO) 0.4 X10'3 (0-0.9); MONOCYTES % (AUTO) 7.5 % (2-12); NEUTROPHILS # (AUTO) 4.3 X10'3 (1.8-7.7); NEUTROPHILS % (AUTO) 74.3 % (42-75); PLATELET COUNT 169 X10'3 (140-440); RED BLOOD COUNT 5.15 X10'6 (4.70-6.10); RED CELL DISTRIBUTION WIDTH 12.3 % (11.5-14.5); WHITE BLOOD COUNT 5.7 X10'3 (4.5-11.0)
[2024-10-30 12:37] LABS: ALANINE AMINOTRANSFERASE 21 U/L (12-78); ALBUMIN 4.1 G/DL (3.4-5.0); ALBUMIN/GLOBULIN RATIO 1.4 (1.1-1.5); ALKALINE PHOSPHATASE 99 IU/L (46-116); ANION GAP 10 (8-16); ASPARTATE AMINO TRANSFERASE 19 U/L (10-37); BILIRUBIN,TOTAL 0.5 MG/DL (0.1-1.0); BLOOD UREA NITROGEN 12 MG/DL (7-18); BUN/CREATININE RATIO 13.5 (10.0-20.0); CALCIUM 8.7 MG/DL (8.5-10.1); CHLORIDE 103 MMOL/L (99-107); CREATININE 0.89 MG/DL (0.60-1.10); GLUCOSE 150 MG/DL (70-104); LIPASE 23 U/L (16-77); POTASSIUM 3.8 MMOL/L (3.5-5.1); SODIUM 141 MMOL/L (135-145); TOTAL CARBON DIOXIDE 28.3 MMOL/L (24-32); TOTAL PROTEIN 7.1 G/DL (6.4-8.2); eCRCL 101 ML/MIN; eGFR > 90 ML/MIN
[2024-10-30] MEDS: normal saline 1000ML IV soln IV ONE (12:59)
[2024-10-30] MEDS: metoclopramide 5 mg/ml inj IV ONE (12:59)
[2024-10-30] MEDS: pantoprazole 40 MG vial IV ONE (12:59)
[2024-10-30 13:44] LABS: BILIRUBIN,URINE NEGATIVE (Neg); CLARITY,URINE CLEAR (Clear); COLOR,URINE YELLOW (Yellow); GLUCOSE, URINE NEGATIVE (Neg); KETONES,URINE NEGATIVE (Neg); LEUKOCYTE ESTERASE ,URINE NEGATIVE (Neg); NITRITES, URINE NEGATIVE (Neg); OCCULT BLOOD,URINE NEGATIVE (Neg); PH,URINE 8.5 (4.8-8.0); PROTEIN,URINE NEGATIVE (Neg); UROBILINOGEN,URINE 0.2 E.U/dL (0.2-1.0)
[2024-10-30 13:47] LABS: UA COLLECTION TYPE NON-SPECIFIED
[2024-10-30] MEDS ORDERED: iohexol 300mg/ml 100ml inj. ONE (14:29)
[2024-10-30] MEDS: normal saline 1000ml 1,000 ML IV SCH (15:08)
--- NOTE | 2024-10-30 15:14 | RADIOLOGY REPORT ---
Exam: CT CT ABDOMEN PELVIS W/ IV CONTRAST History: ap COMPARISON: CT CT ABDOMEN PELVIS on DOS: 01/20/23, CT ABDOMEN PELVIS on DOS: 01/13/22, CT ABDOMEN PELVIS on DOS: 07/27/21 Technique: Multidetector spiral CT of the abdomen and pelvis was performed from lung bases to pubic symphysis. Intravenous contrast was administered during this examination. Portal venous imaging was obtained. Axial, coronal and sagittal multiplanar reformats were performed by the technologist on a separate workstation. Radiation Dose : Abdomen/Pelvis: CTDIvol 8 mGy, DLP 386 mGy*cm. CONTRAST: Type of contrast: Omni 300 Contrast injected: 100 mL Findings: Lung Bases: No acute or significant lung base finding. Normal heart size. No pleural or pericardial effusion. Liver: The liver is normal in size. No focal lesions. Normal hepatic vascular enhancement. Gallbladder and biliary Tree: Unremarkable Spleen: Unremarkable Pancreas: The pancreas is normal in appearance without focal lesions or abnormal enhancement. Adrenal Glands: Unremarkable Kidneys: No hydronephrosis. Bladder: Unremarkable Bowel: The stomach is grossly normal in appearance. Small bowel and colon are normal in caliber and d istribution. Normal appendix is visualized in the right lower quadrant without findings of appendicit is. Wall thickening of the right colon and sigmoid colon could be due to underdistention. Sigmoid di verticulosis. Ascites: Absent Lymphadenopathy: No mesenteric, retroperitoneal or periportal lymphadenopathy. Abdominal wall and Mesentery: Unremarkable. Vasculature: The visualized abdominal aorta is normal in size and caliber. Abdominal and pelvic vess els demonstrate normal enhancement. Pelvic Organs: Unremarkable Musculoskeletal: No aggressive focal bony lesions, acute fractures or dislocation. IMPRESSION: 1. No acute abdominal or pelvic finding. Nonspecific wall thickening of the right colon and sigmoid c olon, colitis is not excluded. Sigmoid diverticulosis. No definite evidence of acute diverticulitis. Clinical correlation and continued follow-up is recommended. Radiation optimization: All CT scans at this facility use at least one of these dose optimization anu hniques: Automated exposure control mA and/or kV adjustment per patient size (includes targeted exams where dose is matched to clinical indication) or iterative reconstruction. HS:Y
[2024-10-30 15:16] LABS: HEMATOCRIT 42.3 % (42.0-52.0); HEMOGLOBIN 14.6 g/dl (14.0-17.9); MEAN CORPUSCULAR HGB CONC 34.5 g/dL (33.0-36.5); MEAN CORPUSCULAR VOLUME 89.8 FL (78-98); MEAN PLATELET VOLUME 7.4 FL (7.4-10.4); PLATELET COUNT 149 X10'3 (140-440); RED CELL DISTRIBUTION WIDTH 12.4 % (11.5-14.5); WHITE BLOOD COUNT 7.3 X10'3 (4.5-11.0)
[2024-10-30] MEDS ORDERED: RABE20TA32 PO (15:20)
[2024-10-30 15:35] VITALS: BP 117/79; PULSE 71
== END 2024-10-30 16:25 | disposition home or self-care (01) ==
LOC: ER 11:46
DX: K29.00 Acute gastritis without bleeding (principal); K21.9 Gastro-esophageal reflux disease without esophagitis; F25.9 Schizoaffective disorder, unspecified; Z79.899 Other long term (current) drug therapy; F15.90 Other stimulant use, unspecified, uncomplicated
CPT/HCPCS: 36415; 74177; 80053; 81003; 83690; 85025; 85027; 96361; 96374; 96375; 99285; J2470; J2765; J7030; Q9967

== ENCOUNTER 2025-01-28 09:29 | Emergency (ER) | payer MEDICAID ==
[~2025-01-28] VITALS: Ht 165.1 cm; Wt 63.6 kg
[~2025-01-28 09:29] MED LIST changes: +RABE20TA32 PO
[2025-01-28 09:34] VITALS: BP 137/80; PULSE 93; RESP 16; O2SAT 99
--- NOTE | 2025-01-28 09:55 | Physician Documentation ---
History of Present Illness ~ Chief Complaint: Diarrhea Stated Complaint: VOMITING Time Seen by MD: 09:46 Primary Medical Doctor: CESAR TEMPLE HPI 34-year-old male presents to the ED with a complaint of two weeks of nausea vomiting and diarrhea. He states that he has been drinking well water and denies whether or not he knows that is filtered. Reports hot and cold symptoms along with GI upset and aforementioned symptoms. A complicating factor to patient's presentation today is that he has been previously diagnosed with exocrine pancreatic insufficiency. Medication Reconciliation Allergies: Coded Allergies: No Known Allergies (Unverified , 01/28/25) Scheduled Chlordiazepoxide Hcl (Librium), 25 MG PO DIRECTED Chlordiazepoxide Hcl (Librium), 25 MG PO DIRECTED Colchicine (Colcrys), 0.6 MG PO BID Cyclobenzaprine* (Cyclobenzaprine*), 1 TAB PO HS Famotidine (PEPCID tablet), 20 MG CORPAK BID Famotidine (Famotidine), 1 TABLET PO BID Lipase/Protease/Amylase (Zenpep Dr 40,000 Units Capsule), 6 CAPSULE PO Q4H Lipase/Protease/Amylase (Zenpep Dr 40,000 Units Capsule), 1 CAP PO 6xper day Methylprednisolone (Medrol), 1 DOSPAK PO UD Omeprazole (Omeprazole), 2 CAP PO BID Ondansetron ODT* (Zofran ODT*), 4 MG PO Q6H Pantoprazole Sodium (PROTONIX tablet), 1 TABLET PO DAILY Pantoprazole Sodium (PROTONIX tablet), 1 TAB PO DAILY Pantoprazole Sodium (PROTONIX tablet), 1 TAB PO DAILY Rabeprazole Sodium (Rabeprazole Sodium), 1 TAB PO DAILY Sucralfate (Carafate), 1 TAB PO Q6H Tramadol HCl (Tramadol HCl), 1-2 TABLET PO BID Scheduled PRN Diphenhydramine Hcl (Benadryl), 1 CAP PO Q6H PRN for abdominal cramps Metoclopramide HCl (Reglan), 1 TAB PO Q6H PRN for abdominal cramps Ondansetron (Zofran Odt), 8 MG PO TID PRN PRN for nausea/vomiting Pantoprazole Sodium (Protonix), 1 TABLET PO BID PRN for abdominal pain Sucralfate (Sucralfate), 1 TABLET PO QID PRN for abdiminal pain Miscellaneous Medications Home Med List (No Home Medications), (Reported) Past Medical History Past Medical History: GERD, Peptic Ulcer Disease Past Surgical History: no surgical history Alcohol Use: Sober Drug Use: methamphetamine Lives with: Family Lives In: Home Occupation: employed Review of Systems All Other Systems at this time: Reviewed and Negative Physical Exam Vital Signs: Temperature: 98.5, Source: Temporal, Heart Rate: 93, Respiratory Rate: 16, BP: 137/80, Pulse Oximetry: 99, Weight: 63.640 Oxygen Flow Rate: 0 Physical Exam General: Alert, no apparent distress. HEENT: PERRL, EOMI, no injection, moist mucous membranes. Respiratory: Lungs clear, no respiratory distress. Cardiovascular: Regular rate and rhythm, no murmurs. GI: Nondistended, nontender Neurologic: Oriented x4. Psychiatric: Normal mood and affect. Skin: Normal color, warm and dry. No edema, no ecchymosis. Progress Results/Orders Results/Orders Orders - HENRIQUE BEGUM FIELD EXAMINER Urinalysis, Cult If Indicated (01/28/25 09:56) Completed Orders - HENRIQUE BEGUM FIELD EXAMINER Cbc/Diff (01/28/25 09:56) BMP (01/28/25 09:56) Lipase (01/28/25 09:56) CMP (01/28/25 09:56) Vital Signs 01/28/25 09:34 Temp 98.5 Pulse 93 Resp 16 B/P (MAP) 137/80 Pulse Ox 99 O2 Flow Rate 0 Laboratory Tests Test 01/28/25 10:09 01/28/25 10:47 White Blood Count 8.7 Red Blood Count 5.19 Hemoglobin 16.1 Hematocrit 47.1 Mean Corpuscular Volume 90.8 Mean Corpuscular Hemoglobin 31.0 Mean Corpuscular Hemoglobin Concent 34.1 Red Cell Distribution Width 12.7 Platelet Count 208 Mean Platelet Volume 7.5 Neutrophils (%) (Auto) 84.9 H Lymphocytes (%) (Auto) 10.5 L Monocytes (%) (Auto) 4.1 Eosinophils (%) (Auto) 0.1 Basophils (%) (Auto) 0.4 Neutrophils # (Auto) 7.4 Lymphocytes # (Auto) 0.9 L Monocytes # (Auto) 0.4 Eosinophils # (Auto) 0.0 Basophils # (Auto) 0.0 CBC Comment Sodium Level 142 Potassium Level 4.5 Chloride Level 105 Carbon Dioxide Level 30.9 Anion Gap 6 L Blood Urea Nitrogen 19 H Creatinine 0.87 Estimated GFR/1.73 m2 > 90 BUN/Creatinine Ratio 21.8 H Glucose Level 83 Calcium Level 9.0 Total Bilirubin 0.3 Aspartate Amino Transf (AST/SGOT) 16 Alanine Aminotransferase (ALT/SGPT) 30 Alkaline Phosphatase 102 Total Protein 7.7 Albumin 4.1 Globulin 3.6 Albumin/Globulin Ratio 1.1 Lipase 40 Chemistry Comments Urine Comment Medical Decision Making Findings Reported history was initially concerning for bacterial infection and/or parasites his laboratory values are reassuring. this may be an EP I flare-up. Patient to avoid well water and will prescribe him Imodium MD with instructions to return for any worsening symptoms Departure Disposition: HOME / SELF CARE / HOMELESS Impression: Primary Impression: Diarrhea Condition: Stable Discharge Instructions: Diarrhea, Adult Referrals: NO PRIMARY CARE PROVIDER (PCP) Prescriptions Loperamide HCl (Imodium A-D) 2 Mg Capsule 1 CAP PO Q8H for 5 Days, #15 CAP 0 Refills Prov: HENRIQUE BEGUM NP 01/28/25 Signature Scribe Signature: g Attestation: Scribed for Henrique Begum Technical Buyer by Henrique Houston NP . 01/28/25 11:08 HENRIQUE BEGUM NP Jan 28, 2025 09:55
[2025-01-28 10:41] LABS: MEAN PLATELET VOLUME 7.5 FL (7.4-10.4); RED CELL DISTRIBUTION WIDTH 12.7 % (11.5-14.5)
[2025-01-28 11:01] LABS: CREATININE 0.87 MG/DL (0.60-1.10); TOTAL CARBON DIOXIDE 30.9 MMOL/L (24-32); eCRCL 103 ML/MIN; eGFR > 90 ML/MIN
[2025-01-28] MEDS ORDERED: LOPE-190 PO (11:13)
[2025-01-28 11:21] VITALS: TEMP 98.5
[2025-01-28 11:22] LABS: LEUKOCYTE ESTERASE ,URINE NEGATIVE (Neg); NITRITES, URINE NEGATIVE (Neg); OCCULT BLOOD,URINE NEGATIVE (Neg)
[2025-01-28 11:30] LABS: UA COLLECTION TYPE CLN CATCH MIDSTREAM
== END 2025-01-28 11:22 | disposition home or self-care (01) ==
LOC: ER 09:30
DX: R19.7 Diarrhea, unspecified (principal); R11.2 Nausea with vomiting, unspecified; K21.9 Gastro-esophageal reflux disease without esophagitis; F15.90 Other stimulant use, unspecified, uncomplicated; Z87.11 Personal history of peptic ulcer disease; Z79.899 Other long term (current) drug therapy
CPT/HCPCS: 36415; 80053; 81003; 83690; 85025; 99283

== ENCOUNTER 2025-01-30 12:10 | Emergency (ER) | payer MEDICAID ==
[~2025-01-30] VITALS: Ht 165.1 cm; Wt 62.5 kg
[~2025-01-30 12:10] MED LIST changes: +LOPE-190 PO
[2025-01-30 12:31] VITALS: TEMP 98.2
[2025-01-30 14:02] LABS: MEAN PLATELET VOLUME 7.2 FL (7.4-10.4); RED CELL DISTRIBUTION WIDTH 12.4 % (11.5-14.5)
[2025-01-30] MEDS: ondansetron/PF 4mg/2ml inj IV ONE (14:05)
[2025-01-30] MEDS: normal saline 1000ml 1,000 ML IV ONE (14:05)
[2025-01-30 14:17] LABS: CREATININE 0.73 MG/DL (0.60-1.10); TOTAL CARBON DIOXIDE 30.8 MMOL/L (24-32); eCRCL 123 ML/MIN; eGFR > 90 ML/MIN
[2025-01-30 14:22] LABS: LEUKOCYTE ESTERASE ,URINE NEGATIVE (Neg); NITRITES, URINE NEGATIVE (Neg); OCCULT BLOOD,URINE NEGATIVE (Neg)
[2025-01-30 14:31] LABS: UA COLLECTION TYPE CLN CATCH MIDSTREAM
[2025-01-30] MEDS ORDERED: pantoprazole 40mg Tablet.DR PO SCH (15:00)
[2025-01-30] MEDS ORDERED: PANT-47 PO (15:12)
--- NOTE | 2025-01-30 15:12 | Physician Documentation ---
History of Present Illness Chief Complaint: Vomiting Stated Complaint: NAUSEA/VOMITING Time Seen by MD: 13:52 Primary Medical Doctor: CESAR TEMPLE Source: patient Mode of Arrival: POV, Ambulatory Exam Limitations: no limitations HPI Mr. 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 The pain appears his typical pain. He states that he has been unable to tolerate much by mouth due to the nausea. Denies fever/chills. No recent ABD trauma. Denies BRBPR or melena. No dysuria or hematuria. No recent unexplained weight loss. Medication Reconciliation Allergies: Coded Allergies: No Known Allergies (Unverified , 01/30/25) Scheduled Chlordiazepoxide Hcl (Librium), 25 MG PO DIRECTED Chlordiazepoxide Hcl (Librium), 25 MG PO DIRECTED Colchicine (Colcrys), 0.6 MG PO BID Cyclobenzaprine* (Cyclobenzaprine*), 1 TAB PO HS Famotidine (PEPCID tablet), 20 MG CORPAK BID Famotidine (Famotidine), 1 TABLET PO BID Lipase/Protease/Amylase (Zenpep Dr 40,000 Units Capsule), 6 CAPSULE PO Q4H Lipase/Protease/Amylase (Zenpep Dr 40,000 Units Capsule), 1 CAP PO 6xper day Loperamide HCl (Imodium A-D), 1 CAP PO Q8H Methylprednisolone (Medrol), 1 DOSPAK PO UD Omeprazole (Omeprazole), 2 CAP PO BID Ondansetron ODT* (Zofran ODT*), 4 MG PO Q6H Pantoprazole Sodium (PROTONIX tablet), 1 TABLET PO DAILY Pantoprazole Sodium (PROTONIX tablet), 1 TAB PO DAILY Pantoprazole Sodium (PROTONIX tablet), 1 TAB PO DAILY Rabeprazole Sodium (Rabeprazole Sodium), 1 TAB PO DAILY Sucralfate (Carafate), 1 TAB PO Q6H Tramadol HCl (Tramadol HCl), 1-2 TABLET PO BID Scheduled PRN Diphenhydramine Hcl (Benadryl), 1 CAP PO Q6H PRN for abdominal cramps Metoclopramide HCl (Reglan), 1 TAB PO Q6H PRN for abdominal cramps Ondansetron (Zofran Odt), 8 MG PO TID PRN PRN for nausea/vomiting Pantoprazole Sodium (Protonix), 1 TABLET PO BID PRN for abdominal pain Sucralfate (Sucralfate), 1 TABLET PO QID PRN for abdiminal pain Miscellaneous Medications Home Med List (No Home Medications), (Reported) Past Medical History Past Medical History: GERD, Peptic Ulcer Disease Past Surgical History: no surgical history Alcohol Use: Sober Drug Use: methamphetamine Lives with: Family Lives In: Home Occupation: employed Review of Systems ROS As stated above in the HPI, otherwise all systems are reviewed and negative. Physical Exam Vital Signs: RN Vital Signs have been reviewed: Yes, Temperature: 98.2, Source: Oral, Heart Rate: 66, Respiratory Rate: 15, BP: 124/82, Pulse Oximetry: 100, Weight: 62.500 Oxygen Flow Rate: 0 Physical Exam VITALS: Reviewed and as above. GENERAL: Alert, no apparent distress. HEENT: Normocephalic, atraumatic, PERRL, EOMI, dry mucosa, no erythema RESPIRATORY: Lungs clear, normal breath sounds, no respiratory distress. CHEST: No accessory muscle use, no retractions CV: Regular rate, rhythm, no edema, no murmur, No: JVD GI: Soft, tenderness to the lower abdomen with palpation., bowels sounds present, no rebound, guarding, or rigidity BACK: No CVA tenderness, or swelling MUSCULOSKELETAL No deformities, no edema SKIN: Warm and dry, no rash NEURO: Oriented x4, No motor or sensory deficit PSYCH: Normal mood and affect, no agitation Progress Results/Orders Results/Orders Completed Orders - MICKY ARAIZA MD Urinalysis, Cult If Indicated (01/30/25 13:44) Cbc/Diff (01/30/25 13:44) BMP (01/30/25 13:44) Lipase (01/30/25 13:44) CMP (01/30/25 13:44) Ondansetron Inj. (Zofran 4mg/2ml Vial) (01/30/25 13:45) Normal Saline 1000ml (0.9% Sodium Chlori (01/30/25 13:45) Pantoprazole Tablet (Protonix) (01/30/25 15:00) Pantoprazole Tablet (Protonix) (01/30/25 15:00) Medications Received in ER Medications (Trade) Dose Ordered Sig/Alisia Route PRN Reason Start Time Stop Time Status Last Admin Dose Admin (Zofran 4mg/2ml vial) 4 mg ONCE ONCE IV 01/30/25 13:45 01/30/25 13:46 DC 01/30/25 14:05 4 MG Sodium Chloride 1,000 ml @ 1,000 mls/hr ONCE ONCE IV 01/30/25 13:45 01/30/25 14:44 DC 01/30/25 14:05 1,000 MLS/HR Vital Signs 01/30/25 01/30/25 01/30/25 01/30/25 12:31 13:28 13:28 14:45 Temp 98.2 Pulse 89 68 66 Resp 18 16 16 15 B/P (MAP) 121/76 114/84 (94) 124/82 (96) Pulse Ox 97 96 100 O2 Flow Rate 0 Laboratory Tests Test 01/30/25 13:43 01/30/25 13:54 Urine Specimen Description Cln catch midstream Urine Color Yellow Urine Clarity Clear Urine pH 8.0 Urine Specific [place] 1.015 Urine Protein Negative Urine Glucose (UA) Negative Urine Ketones Negative Urine Occult Blood Negative Urine Nitrite Negative Urine Bilirubin Negative Urine Urobilinogen 0.2 Urine Leukocyte Esterase Negative Urine Culture Indicated Not ind Volume Urine Centrifuged 10 ml Urine Comment White Blood Count 8.5 Red Blood Count 5.21 Hemoglobin 16.2 Hematocrit 47.0 Mean Corpuscular Volume 90.1 Mean Corpuscular Hemoglobin 31.0 Mean Corpuscular Hemoglobin Concent 34.4 Red Cell Distribution Width 12.4 Platelet Count 203 Mean Platelet Volume 7.2 L Neutrophils (%) (Auto) 72.7 Lymphocytes (%) (Auto) 18.6 L Monocytes (%) (Auto) 7.4 Eosinophils (%) (Auto) 0.8 Basophils (%) (Auto) 0.5 Neutrophils # (Auto) 6.1 Lymphocytes # (Auto) 1.6 Monocytes # (Auto) 0.6 Eosinophils # (Auto) 0.1 Basophils # (Auto) 0.0 CBC Comment Sodium Level 142 Potassium Level 3.9 Chloride Level 104 Carbon Dioxide Level 30.8 Anion Gap 7 L Blood Urea Nitrogen 18 Creatinine 0.73 Estimated GFR/1.73 m2 > 90 BUN/Creatinine Ratio 24.7 H Glucose Level 92 Calcium Level 8.9 Total Bilirubin 0.3 Aspartate Amino Transf (AST/SGOT) 21 Alanine Aminotransferase (ALT/SGPT) 22 Alkaline Phosphatase 100 Total Protein 7.8 Albumin 4.1 Globulin 3.7 Albumin/Globulin Ratio 1.1 Lipase 35 Chemistry Comments Medical Decision Making Differential Dx:Considerations: Include: Appendicitis, Bowel obstruction, Cholangitis, Cholelithasis, Constipation, Esophagitis, Gastritis/PUD, Gastroenteritis, Hepatitis, Inflammatory BD, Ischemic bowel, Pancreatitis, Porphyria, Urinary tract infection Additional Comments Mr. 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 While here in the ED, he remained hemodynamically normal with ABC's intact and in NAD. He is afebrile and nontoxic. ABD exam benign. LFT's and lipase within normal ranges. Lytes unremarkable. No significant leukocytosis or left shift. Serial exams with improvement. Clinically, he does not appear to have an acute surgical ABD. He was reassessed and feels significantly better. He states that he is out of his Pantoprazole and is asking for a refill. Will send script to pharmacy. Given follow-up and return instructions. He voiced understanding and agreement with d/c instructions. Diagnosis: 1). ABD pain Departure Disposition: HOME / SELF CARE / HOMELESS Impression: Primary Impression: Abdominal pain Condition: Improved Discharge Instructions: Abdominal Pain, Adult, [id number] Referrals: NO PRIMARY CARE PROVIDER (PCP) Prescriptions Pantoprazole Sodium (PROTONIX tablet) 40 Mg Tablet.dr 1 TAB PO DAILY for 30 Days, #30 TAB 0 Refills Prov: MICKY ARAIZA MD 01/30/25 Comments Take medications as prescribed. Please follow up with her primary care provider. Please return to the emergency department with any worsening or recurrent symptoms or any additional concerning symptoms that we discussed here today. Education Educated: Patient Educated regarding: diagnosis, treatment Signature Scribe Signature: N/A Attestation: N/A MICKY ARAIZA MD Jan 30, 2025 15:12
[2025-01-30 15:17] VITALS: BP 121/82; PULSE 58; RESP 16; O2SAT 98
[2025-01-30] MEDS: pantoprazole 40mg Tablet.DR PO ONE (15:26)
[2025-01-31] MEDS ORDERED: LIPA1CAP21 PO (12:41)
== END 2025-01-30 15:28 | disposition home or self-care (01) ==
LOC: ER 12:12
DX: R10.9 Unspecified abdominal pain (principal); F15.90 Other stimulant use, unspecified, uncomplicated; F10.90 Alcohol use, unspecified, uncomplicated; Y90.9 Presence of alcohol in blood, level not specified
CPT/HCPCS: 36415; 80053; 81003; 83690; 85025; 96361; 96374; 99283; J2405; J7030

== ENCOUNTER 2025-01-31 12:14 | Emergency (ER) | payer MEDICAID ==
[~2025-01-31] VITALS: Ht 165.1 cm; Wt 63.7 kg
[2025-01-31 12:15] VITALS: BP 130/86; PULSE 86; RESP 16; TEMP 98; O2SAT 98
--- NOTE | 2025-01-31 12:39 | Physician Documentation ---
HPI ~ General Chief Complaint: Medication Refill Stated Complaint: MED REQUEST Time Seen by MD: 12:32 Primary Medical Doctor: CESAR TEMPLE History of Present Illness HPI Comments Patient is requesting a medication refill on his lipase. States he will he is almost out in his has been unable to get a refill from his primary care Without Medications Since: Jan 31, 2025 Medication Reconciliation Allergies: Coded Allergies: No Known Allergies (Unverified , 01/30/25) Scheduled Chlordiazepoxide Hcl (Librium), 25 MG PO DIRECTED Chlordiazepoxide Hcl (Librium), 25 MG PO DIRECTED Colchicine (Colcrys), 0.6 MG PO BID Cyclobenzaprine* (Cyclobenzaprine*), 1 TAB PO HS Famotidine (PEPCID tablet), 20 MG CORPAK BID Famotidine (Famotidine), 1 TABLET PO BID Lipase/Protease/Amylase (Zenpep Dr 40,000 Units Capsule), 6 CAPSULE PO Q4H Lipase/Protease/Amylase (Zenpep Dr 40,000 Units Capsule), 1 CAP PO 6xper day Loperamide HCl (Imodium A-D), 1 CAP PO Q8H Methylprednisolone (Medrol), 1 DOSPAK PO UD Omeprazole (Omeprazole), 2 CAP PO BID Ondansetron ODT* (Zofran ODT*), 4 MG PO Q6H Pantoprazole Sodium (PROTONIX tablet), 1 TABLET PO DAILY Pantoprazole Sodium (PROTONIX tablet), 1 TAB PO DAILY Pantoprazole Sodium (PROTONIX tablet), 1 TAB PO DAILY Pantoprazole Sodium (PROTONIX tablet), 1 TAB PO DAILY Rabeprazole Sodium (Rabeprazole Sodium), 1 TAB PO DAILY Sucralfate (Carafate), 1 TAB PO Q6H Tramadol HCl (Tramadol HCl), 1-2 TABLET PO BID Scheduled PRN Diphenhydramine Hcl (Benadryl), 1 CAP PO Q6H PRN for abdominal cramps Metoclopramide HCl (Reglan), 1 TAB PO Q6H PRN for abdominal cramps Ondansetron (Zofran Odt), 8 MG PO TID PRN PRN for nausea/vomiting Pantoprazole Sodium (Protonix), 1 TABLET PO BID PRN for abdominal pain Sucralfate (Sucralfate), 1 TABLET PO QID PRN for abdiminal pain Miscellaneous Medications Home Med List (No Home Medications), (Reported) Past Medical History Past Medical History: GERD, Peptic Ulcer Disease Past Surgical History: no surgical history Alcohol Use: Sober Drug Use: methamphetamine Lives with: Family Lives In: Home Occupation: employed Review of Systems All Other Systems at this time: Reviewed and Negative ROS As stated above in the HPI, otherwise all systems are reviewed and negative. Physical Exam Physical Exam Vital Signs: Temperature: 98.0, Source: Temporal, Heart Rate: 86, Respiratory Rate: 16, BP: 130/86, Pulse Oximetry: 98, Weight: 63.700 Oxygen Flow Rate: 0 Physical Exam General: Alert, no apparent distress. HEENT: PERRL, EOMI, no injection, moist mucous membranes. Neck: Full range of motion. Respiratory: Lungs clear, no respiratory distress. Chest: No accessory muscle use. Cardiovascular: Regular rate and rhythm, no murmurs. Gastrointestinal: Soft, nontender, nondistended. Bowels sounds present. Extremities: Normal range of motion, no deformity. Neurologic: Oriented x4. Psychiatric: Normal mood and affect. Skin: Normal color, warm and dry. No edema, no ecchymosis. Progress Results/Orders Results/Orders Vital Signs 01/31/25 12:15 Temp 98.0 Pulse 86 Resp 16 B/P (MAP) 130/86 Pulse Ox 98 O2 Flow Rate 0 Medical Decision Making Findings Meds refilled as requested Differential Dx:Considerations: Include: Adverse circumstances, Economic, Psychosocial, Medical services unavail., Medication refill, Medication non- compliance, Other Departure Disposition: HOME / SELF CARE / HOMELESS Impression: Primary Impression: Medication refill Condition: Stable Discharge Instructions: Medicine Refill at the Emergency Department Referrals: NO PRIMARY CARE PROVIDER (PCP) Prescriptions Lipase/Protease/Amylase (Zenpep Dr 40,000 Units Capsule) [id number] Capsule. 1 CAP PO 6xper day, #60 CAP.SR Prov: HENRIQUE BEGUM NP 01/31/25 Education Educated: Patient Educated regarding: diagnosis Signature Scribe Signature: f Attestation: Scribed for Henrique Begum [employer] by Henrique Houston NP . 01/31/25 16:12 HENRIQUE BEGUM NP Jan 31, 2025 12:39
[2025-01-31] MEDS ORDERED: LIPA1CAP21 PO (12:41)
[2025-02-06] MEDS ORDERED: LIPA1CAP21 PO (09:18)
== END 2025-01-31 12:45 | disposition home or self-care (01) ==
LOC: ER 12:15
DX: Z00.8 Encounter for other general examination (principal); Z76.0 Encounter for issue of repeat prescription; K21.9 Gastro-esophageal reflux disease without esophagitis; F15.90 Other stimulant use, unspecified, uncomplicated; F10.90 Alcohol use, unspecified, uncomplicated; Y90.9 Presence of alcohol in blood, level not specified
CPT/HCPCS: 99281; 99282

== ENCOUNTER 2025-02-05 11:12 | Emergency (ER) | payer MEDICAID ==
[~2025-02-05] VITALS: Ht 167.6 cm; Wt 63.6 kg
[2025-02-05 11:14] VITALS: TEMP 98.4
--- NOTE | 2025-02-05 11:22 | Physician Documentation ---
History of Present Illness Stated Complaint: MED REQUEST Time Seen by MD: 11:14 Primary Medical Doctor: CESAR COLÓN Patient 34-year-old gentleman that presents to the emergency department for medication refill. Reports he has an appointment on the to see a staff radiation therapist and that he was told he needs to stay on the medication until that time. Reports he has a history of pancreatic issues but was unspecific. Patient reports that he was previously a patient of Dr. Stefany Flores who initially prescribed a medication but he is no longer a patient of Stefany Flores's patient will have his medication refilled. Patient denies any other symptoms at this time. Medication Reconciliation Allergies: Coded Allergies: No Known Allergies (Unverified , 01/30/25) Scheduled Chlordiazepoxide Hcl (Librium), 25 MG PO DIRECTED Chlordiazepoxide Hcl (Librium), 25 MG PO DIRECTED Colchicine (Colcrys), 0.6 MG PO BID Cyclobenzaprine* (Cyclobenzaprine*), 1 TAB PO HS Famotidine (PEPCID tablet), 20 MG CORPAK BID Famotidine (Famotidine), 1 TABLET PO BID Lipase/Protease/Amylase (Zenpep Dr 40,000 Units Capsule), 6 CAPSULE PO Q4H Lipase/Protease/Amylase (Zenpep Dr 40,000 Units Capsule), 1 CAP PO 6xper day Lipase/Protease/Amylase (Zenpep Dr 40,000 Units Capsule), 1 CAP PO Q4H Loperamide HCl (Imodium A-D), 1 CAP PO Q8H Methylprednisolone (Medrol), 1 DOSPAK PO UD Omeprazole (Omeprazole), 2 CAP PO BID Ondansetron ODT* (Zofran ODT*), 4 MG PO Q6H Pantoprazole Sodium (PROTONIX tablet), 1 TABLET PO DAILY Pantoprazole Sodium (PROTONIX tablet), 1 TAB PO DAILY Pantoprazole Sodium (PROTONIX tablet), 1 TAB PO DAILY Pantoprazole Sodium (PROTONIX tablet), 1 TAB PO DAILY Rabeprazole Sodium (Rabeprazole Sodium), 1 TAB PO DAILY Sucralfate (Carafate), 1 TAB PO Q6H Tramadol HCl (Tramadol HCl), 1-2 TABLET PO BID Scheduled PRN Diphenhydramine Hcl (Benadryl), 1 CAP PO Q6H PRN for abdominal cramps Metoclopramide HCl (Reglan), 1 TAB PO Q6H PRN for abdominal cramps Ondansetron (Zofran Odt), 8 MG PO TID PRN PRN for nausea/vomiting Pantoprazole Sodium (Protonix), 1 TABLET PO BID PRN for abdominal pain Sucralfate (Sucralfate), 1 TABLET PO QID PRN for abdiminal pain Miscellaneous Medications Home Med List (No Home Medications), (Reported) Past Medical History Past Medical History: GERD, Peptic Ulcer Disease Past Surgical History: no surgical history Alcohol Use: Sober Drug Use: methamphetamine Lives with: Family Lives In: Home Occupation: employed Review of Systems ROS As stated above in the HPI, otherwise all systems are reviewed and negative. Physical Exam Physical Exam VITALS: Reviewed and as above. GENERAL: Alert, no apparent distress. HEENT: Normocephalic, atraumatic, PERRL, EOMI, dry mucosa, no erythema RESPIRATORY: Lungs clear, normal breath sounds, no respiratory distress. CHEST: No accessory muscle use, no retractions CV: Regular rate, rhythm, no edema, no murmur, No: JVD GI: Soft, non-tender, bowels sounds present, no rebound, guarding, or rigidity BACK: No CVA tenderness, or swelling MUSCULOSKELETAL No deformities, no edema SKIN: Warm and dry, no rash NEURO: Oriented x4, No motor or sensory deficit PSYCH: Normal mood and affect, no agitation Medical Decision Making Findings Patient is a 34-year-old gentleman with a history of pancreatic issues that reports to the emergency department for a refill of his pancreatic enzyme medication. Patient denies any symptoms or any other concerns at this time. Patient reports he has a follow up appointment with gastroenterology on the of this month. Differential Dx:Considerations: Include: AAA, Angina/CA, Aortic dissection, Appendicitis, Bowel obstruction, Cholangitis, Cholelithasis, Constipation, Diverticular disease, Esophageal rupture, Esophagitis, Gastritis/PUD, Gastroenteritis, GI hemorrhage, Hernia, Hepatitis, Inflammatory BD, Ischemic bowel, Pancreatitis, Porphyria, Testicular torsion, Trauma, intraabdominal, Urinary obstruction, Urinary tract infection, Urolithiasis, Other Departure Disposition: 01 HOME / SELF CARE / HOMELESS Impression: Primary Impression: Medication refill Condition: Stable Additional Instructions: Patient is a 34-year-old gentleman with a history of pancreatic issues that reports to the emergency department for a refill of his pancreatic enzyme medication. Patient denies any symptoms or any other concerns at this time. Patient reports he has a follow up appointment with gastroenterology on the of this month. Patient will follow up with his primary care provider. Patient will return to the emergency department with any additional concerns or symptoms. Referrals: NO PRIMARY CARE PROVIDER (PCP) Prescriptions Lipase/Protease/Amylase ([place] 40,000 Units Capsule) 40126-168 Capsule. 1 CAP PO Q4H for 10 Days, #60 BOTTLE Prov: JEM DEL REAL NP 02/06/25 Education Educated: Patient Educated regarding: diagnosis, treatment, need for follow up Signature Scribe Signature: A Attestation: Scribed for Filemon Trejo by DERIAN Wheeler . 02/05/25 11:31 FILEMON TREJO Feb 05, 2025 11:22 JEM DEL REAL NP Feb 06, 2025 09:18
[2025-02-05] MEDS ORDERED: LIPA1CAP21 PO (11:28)
[2025-02-05 12:01] VITALS: BP 109/70; PULSE 71; RESP 16; O2SAT 100
[2025-02-06] MEDS ORDERED: LIPA1CAP21 PO (09:18)
== END 2025-02-05 12:02 | disposition home or self-care (01) ==
LOC: ER 11:13
DX: Z00.8 Encounter for other general examination (principal); Z76.0 Encounter for issue of repeat prescription; K21.9 Gastro-esophageal reflux disease without esophagitis; F10.90 Alcohol use, unspecified, uncomplicated; F15.90 Other stimulant use, unspecified, uncomplicated; Y90.9 Presence of alcohol in blood, level not specified
CPT/HCPCS: 99281; 99282

== ENCOUNTER 2025-02-10 11:32 | Emergency (ER) | payer MEDICAID ==
[~2025-02-10] VITALS: Ht 167.6 cm; Wt 63.6 kg
[2025-02-10 11:52] VITALS: BP 110/67; PULSE 70; RESP 15; TEMP 97.5; O2SAT 96
[2025-02-10] MEDS ORDERED: LIPA1CAP PO (12:18)
--- NOTE | 2025-02-10 12:25 | Physician Documentation ---
HPI ~ General Chief Complaint: Medication Request Stated Complaint: MED REQUEST Time Seen by MD: 11:56 Primary Medical Doctor: CESAR TEMPLE History of Present Illness HPI Comments Patient is seen today stating he has an enzyme deficiency from his pancreas and has been taking Zenpep for about a year. [place] the 02783 unit capsules and states he has been taking four capsules at a time each meal about four to 5 times a day. Patient states he takes upwards of 20 capsules per day. Patient states he was getting these prescribed by a local doctor but that doctor did not feel comfortable filling such a high dose and patient has an appointment next week with the specialist. Patient has no other concern or complaint at t his time. He states if he does not take this high of a dose per day he gets stomach cramps. Patient denies any fevers or chills or chest pain or shortness of breath or abdominal pain or nausea, vomiting, diarrhea. Medication Reconciliation Allergies: Coded Allergies: No Known Allergies (Unverified , 01/30/25) Scheduled Chlordiazepoxide Hcl (Librium), 25 MG PO DIRECTED Chlordiazepoxide Hcl (Librium), 25 MG PO DIRECTED Colchicine (Colcrys), 0.6 MG PO BID Cyclobenzaprine* (Cyclobenzaprine*), 1 TAB PO HS Famotidine (PEPCID tablet), 20 MG CORPAK BID Famotidine (Famotidine), 1 TABLET PO BID Lipase/Protease/Amylase (Zenpep Dr 40,000 Units Capsule), 6 CAPSULE PO Q4H Lipase/Protease/Amylase (Zenpep Dr 40,000 Units Capsule), 1 CAP PO 6xper day Lipase/Protease/Amylase (Zenpep Dr 40,000 Units Capsule), 1 CAP PO Q4H Loperamide HCl (Imodium A-D), 1 CAP PO Q8H Methylprednisolone (Medrol), 1 DOSPAK PO UD Omeprazole (Omeprazole), 2 CAP PO BID Ondansetron ODT* (Zofran ODT*), 4 MG PO Q6H Pantoprazole Sodium (PROTONIX tablet), 1 TABLET PO DAILY Pantoprazole Sodium (PROTONIX tablet), 1 TAB PO DAILY Pantoprazole Sodium (PROTONIX tablet), 1 TAB PO DAILY Pantoprazole Sodium (PROTONIX tablet), 1 TAB PO DAILY Rabeprazole Sodium (Rabeprazole Sodium), 1 TAB PO DAILY Sucralfate (Carafate), 1 TAB PO Q6H Tramadol HCl (Tramadol HCl), 1-2 TABLET PO BID Scheduled PRN Diphenhydramine Hcl (Benadryl), 1 CAP PO Q6H PRN for abdominal cramps Metoclopramide HCl (Reglan), 1 TAB PO Q6H PRN for abdominal cramps Ondansetron (Zofran Odt), 8 MG PO TID PRN PRN for nausea/vomiting Pantoprazole Sodium (Protonix), 1 TABLET PO BID PRN for abdominal pain Sucralfate (Sucralfate), 1 TABLET PO QID PRN for abdiminal pain Miscellaneous Medications Home Med List (No Home Medications), (Reported) Discontinued Medications Lipase/Protease/Amylase (Zenpep Dr 40,000 Units Capsule), 6 CAP PO Q4H Discontinued Reason: Prescription changed Past Medical History Past Medical History: GERD, Peptic Ulcer Disease Past Surgical History: no surgical history Alcohol Use: Sober Drug Use: methamphetamine Lives with: Family Lives In: Home Occupation: employed Review of Systems Constitutional: Denies: chills, fever, weakness Eyes: Denies: pain, blurred vision ENT: Denies: ear pain, nose pain, throat pain, mouth pain Respiratory: Denies: cough, shortness of breath Cardiovascular: Denies: chest pain, palpitations Gastrointestinal: Denies: abdominal pain, nausea, vomiting Genitourinary: Denies: burning, dysuria Male Genitalia: Denies: penile discharge, testicular pain Neurological: Denies: headache, dizziness Musculoskeletal: Denies: pain, swelling Integumentary: Denies: rash, lesions Allergic/Immunologic: Denies: hives, itching Hematologic/Lymphatic: Denies: no symptoms reported Psychiatric: Denies: depression, anxiety Physical Exam Physical Exam Vital Signs: Temperature: 97.5, Source: Temporal, Heart Rate: 70, Respiratory Rate: 15, BP: 110/67, Pulse Oximetry: 96, Weight: 63.640 Oxygen Flow Rate: 0 Physical Exam General: Awake and Alert, no acute distress. HEENT: Conjunctiva pink, Sclera clear, Mucus Membranes moist. Neck: Supple without masses and tenderness. Resp: Unlabored. Lungs clear to auscultation bilaterally. Heart: Regular Rate and rhythm, normal S1 and S2 without murmur, rub or gallop. Abdomen: Soft and non tender no organomegaly Extremities: No cyanosis,clubbing or edema. Skin: Warm and Dry. Progress Results/Orders Results/Orders Vital Signs 02/10/25 11:52 Temp 97.5 Pulse 70 Resp 15 B/P (MAP) 110/67 Pulse Ox 96 O2 Flow Rate 0 Medical Decision Making Findings Patient is seen today stating he has an enzyme deficiency from his pancreas and has been taking Zenpep for about a year. Patient states he takes the 18812 unit capsules and states he has been taking four capsules at a time each meal about four to 5 times a day. Patient states he takes upwards of 20 capsules per day. Patient states he was getting these prescribed by a local doctor but that doctor did not feel comfortable filling such a high dose and patient has an appointment next week with the specialist. Patient has no other concern or complaint at this time. He states if he does not take this high of a dose per day he gets stomach cramps. Patient denies any fevers or chills or chest pain or shortness of breath or abdominal pain or nausea, vomiting, diarrhea. Patient was given refill of Zenpep 69554 unit capsules, 1-2 capsules per meal for 14 days. Patient will keep his appointment with the specialist and will return to ED with any worsening, concerning or changing symptoms. Departure Disposition: 01 HOME / SELF CARE / HOMELESS Impression: Primary Impression: Pancreatic insufficiency Condition: Stable Discharge Instructions: Medicine Refill at the Emergency Department Additional Instructions: Patient was given refill of Zenpep 80934 unit capsules, 1-2 capsules per meal for 14 days. Patient will keep his appointment with the specialist and will return to ED with any worsening, concerning or changing symptoms. Referrals: NO PRIMARY CARE PROVIDER (PCP) Prescriptions Lipase/Protease/Amylase (Zenpep Dr 60,000 Unit Capsule) 60K-189.6K Capsule. 2 CAP PO QID for 14 Days, #112 CAP Prov: ELVIN JONES 02/10/25 Signature Scribe Signature: No scribe Attestation: No scribe ELVIN JONES Feb 10, 2025 12:25
== END 2025-02-10 12:34 | disposition home or self-care (01) ==
LOC: ER 11:33
DX: K86.89 Other specified diseases of pancreas (principal); F10.90 Alcohol use, unspecified, uncomplicated; F15.90 Other stimulant use, unspecified, uncomplicated; Y90.9 Presence of alcohol in blood, level not specified
CPT/HCPCS: 99282; 99283

== ENCOUNTER 2025-02-14 08:52 | Emergency (ER) | payer MEDICAID ==
[~2025-02-14] VITALS: Ht 167.6 cm; Wt 64.0 kg
[~2025-02-14 08:52] MED LIST changes: +LIPA1CAP PO
[2025-02-14 09:10] VITALS: BP 117/78; PULSE 73; RESP 18; O2SAT 100
[2025-02-14 09:44] LABS: MEAN PLATELET VOLUME 7.1 FL (7.4-10.4); RED CELL DISTRIBUTION WIDTH 12.5 % (11.5-14.5)
--- NOTE | 2025-02-14 09:44 | Physician Documentation ---
History of Present Illness Chief Complaint: Abdominal Pain w/vomiting Stated Complaint: VOMITING OK to notify your PCP?: Yes Primary Medical Doctor: CESAR TEMPLE Source: patient Mode of Arrival: POV Exam Limitations: no limitations HPI 34-year-old male presents with sharp, stabbing epigastric pain with vomiting for the past 2 weeks. He was seen by his primary care provider but has been unable to see a GI specialist although he was referred. He denies any alcohol intake. He still has his appendix and gallbladder. He denies any diarrhea or constipation. Has not taken any medication for his symptoms as of yet. Medication Reconciliation Allergies: Coded Allergies: No Known Allergies (Unverified , 02/14/25) Scheduled Chlordiazepoxide Hcl (Librium), 25 MG PO DIRECTED Chlordiazepoxide Hcl (Librium), 25 MG PO DIRECTED Colchicine (Colcrys), 0.6 MG PO BID Cyclobenzaprine* (Cyclobenzaprine*), 1 TAB PO HS Famotidine (PEPCID tablet), 20 MG CORPAK BID Famotidine (Famotidine), 1 TABLET PO BID Lipase/Protease/Amylase (Zenpep Dr 40,000 Units Capsule), 6 CAPSULE PO Q4H Lipase/Protease/Amylase (Zenpep Dr 40,000 Units Capsule), 1 CAP PO 6xper day Lipase/Protease/Amylase (Zenpep Dr 40,000 Units Capsule), 1 CAP PO Q4H Lipase/Protease/Amylase (Zenpep Dr 60,000 Unit Capsule), 2 CAP PO QID Loperamide HCl (Imodium A-D), 1 CAP PO Q8H Methylprednisolone (Medrol), 1 DOSPAK PO UD Omeprazole (Omeprazole), 2 CAP PO BID Ondansetron ODT* (Zofran ODT*), 4 MG PO Q6H Pantoprazole Sodium (PROTONIX tablet), 1 TABLET PO DAILY Pantoprazole Sodium (PROTONIX tablet), 1 TAB PO DAILY Pantoprazole Sodium (PROTONIX tablet), 1 TAB PO DAILY Pantoprazole Sodium (PROTONIX tablet), 1 TAB PO DAILY Rabeprazole Sodium (Rabeprazole Sodium), 1 TAB PO DAILY Sucralfate (Carafate), 1 TAB PO Q6H Tramadol HCl (Tramadol HCl), 1-2 TABLET PO BID Scheduled PRN Diphenhydramine Hcl (Benadryl), 1 CAP PO Q6H PRN for abdominal cramps Metoclopramide HCl (Reglan), 1 TAB PO Q6H PRN for abdominal cramps Ondansetron (Zofran Odt), 8 MG PO TID PRN PRN for nausea/vomiting Pantoprazole Sodium (Protonix), 1 TABLET PO BID PRN for abdominal pain Sucralfate (Sucralfate), 1 TABLET PO QID PRN for abdiminal pain Miscellaneous Medications Home Med List (No Home Medications), (Reported) Past Medical History Past Medical History: GERD, Peptic Ulcer Disease Past Surgical History: no surgical history Alcohol Use: Sober Drug Use: methamphetamine Lives with: Family Lives In: Home Occupation: employed Physical Exam Vital Signs: RN Vital Signs have been reviewed: Yes, Temperature: 97.6, Source: Temporal, Heart Rate: 73, Respiratory Rate: 18, BP: 117/78, Pulse Oximetry: 100, Weight: 64.000 Oxygen Flow Rate: 0 Pulse Oximetry Reflects: adequate oxygenation Physical Exam General: Alert, no distress. HEENT: No injection, moist mucous membranes. Neck: Full range of motion. Respiratory: No respiratory distress, equal chest rise and fall. Chest: No accessory muscle use. Cardiovascular: Regular rate and rhythm. Gastrointestinal: Nondistended. Tender to palpation in epigastric region. No rebound tenderness, no McBurney's point. Extremities: Normal range of motion, no deformity. Neurologic: Oriented x4. Psychiatric: Normal mood and affect. Skin: Normal color, warm and dry. Progress Results/Orders Reviewed/noted all lab results: Yes Results/Orders Vital Signs 02/14/25 09:10 Temp 97.6 Pulse 73 Resp 18 B/P (MAP) 117/78 Pulse Ox 100 O2 Flow Rate 0 Laboratory Tests Test 02/14/25 09:36 CBC Comment Chemistry Comments Medical Decision Making Findings Patient eloped after MSE exam. Departure Disposition: LEFT AWOL/ELOPED Impression: Primary Impression: Eloped from emergency department Referrals: NO PRIMARY CARE PROVIDER (PCP) Additional Comment Medical Screen Exam This patient recieved a medical screening examination. After reviewing the individual's medical complaints with presenting symptoms and performing an appropriate physical examination, it was determined that no immediate life- threatening emergency medical condition is present. This individual is also not a women having contractions. Signature Scribe Signature: . Attestation: Scribed for Emergency,Department by Rere Houston NP . 02/14/25 14:54 Parts of this note were created using [employer] voice recognition software program. While efforts were made to correct any mistakes made by this voice recognition software program, nonsensical phrases may remain in this note. In addition, there may be errors and syntax, grammar, content and spelling. RERE PIERSON [facility] Feb 14, 2025 09:43
[2025-02-14 09:51] LABS: LEUKOCYTE ESTERASE ,URINE NEGATIVE (Neg); NITRITES, URINE NEGATIVE (Neg); OCCULT BLOOD,URINE NEGATIVE (Neg)
[2025-02-14 09:56] LABS: UA COLLECTION TYPE CLN CATCH MIDSTREAM
[2025-02-14 10:00] LABS: CREATININE 0.92 MG/DL (0.60-1.10); TOTAL CARBON DIOXIDE 32.6 MMOL/L (24-32); eCRCL 101 ML/MIN; eGFR > 90 ML/MIN
[2025-02-14] MEDS ORDERED: ondansetron 4mg rapidly disintigrating tab PO ONE (12:25)
[2025-02-14 13:45] VITALS: TEMP 97.6
== END 2025-02-14 13:45 | disposition left against medical advice (07) ==
LOC: ER 08:52
DX: R10.13 Epigastric pain (principal); R11.10 Vomiting, unspecified; K21.9 Gastro-esophageal reflux disease without esophagitis; F15.90 Other stimulant use, unspecified, uncomplicated; Z79.899 Other long term (current) drug therapy
CPT/HCPCS: 36415; 80053; 81003; 83690; 85025; 99283